=== PATIENT | female | born 1955 | race Caucasian/White ===

== ENCOUNTER → 2018-12-02 08:10 | Outpatient (CLI) | payer OTHER, SELFPAY ==
--- NOTE | 2018-12-02 | DI.US.S_ITS ---
PROCEDURE: US PELVIC COMPLETE INDICATIONS: PELVIC BLOATING/POSTMENOPAUSAL BLEEDING TECHNIQUE: Real-time scanning was performed of the pelvic organs, with image documentation. Additional endovaginal scanning was necessary due to incomplete visualization of the adnexal and endometrial structures by transabdominal scanning. COMPARISON: None. FINDINGS: Transabdominal scanning: Limited scanning through the kidneys shows no hydronephrosis. No pathologic free abdominal or pelvic fluid. Endovaginal scanning: Uterus: The uterus is normal in size and measures 8.6 x 3.6 x 4.6 cm. No focal myometrial lesions are identified. The endometrium is somewhat heterogeneous and measures up to approximately 7 mm in maximal AP combined dimension. No significant fluid is seen within the endometrium. Ovaries: The right ovary measures 1.9 x 0.8 x 0.8 cm. The left ovary measures 1.2 x 0.8 x 1.7 cm. Both ovaries are normal in size without cystic or solid mass. No adnexal abnormalities are evident. IMPRESSION: 1. Endometrial thickening may be the source for the patient's postmenopausal bleeding. Hysteroscopy would be helpful for further evaluation. 2. Unremarkable ovaries. Dictated by: Omar Schroeder M.D. on 12/02/2018 at 8:52 Approved by: Omar Schroeder M.D. on 12/02/2018 at 8:55
--- NOTE | 2018-12-02 08:00 | DI.MG.S_ITS ---
Patient Name: ISAIAH ART date: 1955 Sex: F Attending Physician: Abby Indications: Date: 12/02/2018 08:42 At the request of: KARL ALAS Procedure: MM screening mammo BI BILATERAL DIGITAL SCREENING MAMMOGRAM 3D/2D WITH CAD: 12/02/2018 CLINICAL: Routine screening. Baseline exam. No prior exams were available for comparison. There are scattered fibroglandular elements in both breasts. Current study was also evaluated with a Computer Aided Detection (CAD) system. There is a benign intramammary node in both breasts. There also are benign calcifications in both breasts. No significant masses, calcifications, or other findings are seen in either breast. IMPRESSION: There is no mammographic evidence of malignancy. A 1 year screening mammogram is recommended. This exam was interpreted at Station ID: [id number]. NOTE: For mammograms, a report in lay terms will be sent to the patient. Approximately 15% of breast malignancies will not be visualized mammographically. In the management of a palpable breast mass, a negative mammogram must not discourage biopsy of a clinically suspicious lesion. Electronically Signed By: Ernesto trevino/nathan:12/02/2018 22:41:36 letter sent: Normal Exam ACR BI-RADS Category 2: Benign Finding(s) 3342F
== END ==
PROVIDERS: Visit Provider Nurse Practitioner Obstetrics & Gynecology
DX: Z12.31 Encounter for screening mammogram for malignant neoplasm of breast (principal); N95.0 Postmenopausal bleeding; R93.89 Abnormal findings on diagnostic imaging of other specified body structures; R14.0 Abdominal distension (gaseous)
CPT/HCPCS: 76830; 76856; 77063; 77067

== ENCOUNTER → 2020-07-08 19:48 | Outpatient (ROUT) | payer OTHER, MEDICARE, SELFPAY ==
[2020-07-08 20:04] LABS: Add Manual Diff / Slide Review NO; Basophils Absolute Auto 0 /uL (0-100); Basophils Percent Auto 0.5 % (0-2); Eosinophils Absolute Auto 100 /uL (0-450); Eosinophils Percent Auto 1.3 % (2-4); Hematocrit 38.8 % (36-46); Hemoglobin 12.9 g/dL (12.0-16.0); Lymphocytes Absolute Auto 1500 /uL (1100-4500); Lymphocytes Percent Auto 35.6 % (25-40); Mean Corpuscular HGB Conc 33.3 % (30-36); Mean Corpuscular Hemoglobin 29.1 PG (26-34); Mean Corpuscular Volume 87.6 fL (80-100); Monocytes Absolute Auto 400 /uL (0-900); Monocytes Percent Auto 9.9 % (3-14); Neutrophils Absolute Auto 2200 /uL (1500-7000); Neutrophils Percent Auto 52.7 % (50-75); Platelet Count 324 X10^3/uL (150-400); Red Blood Cell Count 4.43 X10^6/uL (4.0-5.2); Red Cell Distribution Width 14.6 % (11.6-14.8); White Blood Cell Count 4.1 X10^3/uL (4.5-11.0)
[2020-07-08 20:15] LABS: Alanine Aminotransferase 20 IU/L (<35); Albumin 4.4 g/dL (3.5-5.0); Albumin Globulin Ratio 1.5 (1.0-2.8); Alkaline Phosphatase 81 U/L (38-126); Aspartate Aminotransferase 28 IU/L (14-36); BUN Creatinine Ratio 21.5 (6-22); Bilirubin Total 0.6 mg/dL (0.2-1.3); Blood Urea Nitrogen 17 mg/dL (7-17); Calcium 9.6 mg/dL (8.4-10.2); Carbon Dioxide 28 mmol/L (22-32); Chloride 100 mmol/L (98-107); Cholesterol 227 mg/dL (140-199); Estimated Glomerular Filt Rate > 60.0 mL/min (>60); Glucose 81 mg/dL (80-110); HDL Cholesterol 76 mg/dL (40-60); HEMOLYSIS < 15 (0-50); LDL Cholesterol Calculated 132 mg/dL (<100); Potassium 4.2 mmol/L (3.4-5.1); Sodium 135 mmol/L (137-145); Total Protein 7.4 g/dL (6.3-8.2); Triglycerides 93 mg/dL (35-150)
[2020-07-08 20:31] LABS: Free T3, Triiodothyronine Free 4.54 pg/mL (2.77-5.27)
[2020-07-08 20:45] LABS: TSH w/ Reflex to FT4 < 0.02 uIU/mL (0.47-4.68)
== END ==
PROVIDERS: Visit Provider Physician Assistant
DX: E78.2 Mixed hyperlipidemia (principal); E03.8 Other specified hypothyroidism
CPT/HCPCS: 80053; 80061; 84439; 84443; 84481; 85025

== ENCOUNTER → 2020-09-09 19:29 | Outpatient (ROUT) | payer MEDICARE, OTHER, SELFPAY ==
[2020-09-09 20:45] LABS: TSH w/ Reflex to FT4 0.03 uIU/mL (0.47-4.68)
[2020-09-09 21:14] LABS: Free T4, Direct Thyroxine 0.95 ng/dL (0.78-2.19)
== END ==
PROVIDERS: Visit Provider Physician Assistant
DX: E06.3 Autoimmune thyroiditis (principal)
CPT/HCPCS: 84439; 84443

== ENCOUNTER → 2020-11-17 15:35 | Outpatient (ROUT) | payer MEDICARE, SELFPAY ==
[2020-11-17 16:22] LABS: Free T4, Direct Thyroxine 1.39 ng/dL (0.78-2.19)
[2020-11-17 16:36] LABS: Thyroid Stimulating Hormone 3.55 uIU/mL (0.47-4.68)
== END ==
PROVIDERS: PCP Physician Assistant; Visit Provider Physician Assistant
DX: E06.3 Autoimmune thyroiditis (principal); E03.9 Hypothyroidism, unspecified
CPT/HCPCS: 84439; 84443; 84481

== ENCOUNTER → 2020-12-23 14:22 | Outpatient (CLI) | payer MEDICARE, SELFPAY ==
[2020-12-23] MEDS: COVID-19 VACC #1, MRNA(MOD) 100 MCG/0.5 ML VIAL IM (14:33)
== END ==
PROVIDERS: PCP Physician Assistant; Visit Provider Internal Medicine
DX: Z23 Encounter for immunization (principal)
CPT/HCPCS: 0011A; 91301

== ENCOUNTER → 2020-12-29 15:09 | Outpatient (ROUT) | payer MEDICARE, SELFPAY ==
[2020-12-29 16:02] LABS: Free T3, Triiodothyronine Free 2.98 pg/mL (2.77-5.27); Free T4, Direct Thyroxine 1.17 ng/dL (0.78-2.19)
[2021-01-02 15:27] LABS: Thyroid Stimulating Immunoglob < 0.10 IU/L (0.00-0.55)
== END ==
PROVIDERS: PCP Physician Assistant; Visit Provider Physician Assistant
DX: E06.3 Autoimmune thyroiditis (principal); E03.9 Hypothyroidism, unspecified
CPT/HCPCS: 84439; 84445; 84481

== ENCOUNTER → 2021-02-03 08:05 | Outpatient (CLI) | payer MEDICARE, OTHER, SELFPAY ==
[2021-02-03] MEDS: COVID-19 VACC #2, MRNA(MOD) 100 MCG/0.5 ML VIAL IM (08:27)
== END ==
PROVIDERS: PCP Physician Assistant; Visit Provider Internal Medicine
DX: Z23 Encounter for immunization (principal)
CPT/HCPCS: 0012A; 91301

== ENCOUNTER → 2021-11-16 07:38 | Outpatient (CLI) | payer MEDICARE, OTHER, SELFPAY ==
[2021-11-16 08:06] LABS: COVID19 -Nasal RAPID Negative (Negative)
== END ==
PROVIDERS: PCP Physician Assistant; Referring Provider Physician Assistant; Visit Provider Physician Assistant
DX: Z20.822 Contact with and (suspected) exposure to COVID-19 (principal)
CPT/HCPCS: 87635

== ENCOUNTER → 2022-02-06 10:00 | Outpatient (CLI) | payer MEDICARE, OTHER, SELFPAY ==
--- NOTE | 2022-02-06 | DI.MG.S_ITS ---
BILATERAL DIGITAL SCREENING MAMMOGRAM 3D/2D WITH CAD: 02/06/2022 CLINICAL: Routine screening. Comparison is made to exams dated: 12/02/2018 mammogram - [facility], 09/24/2001 mammogram, and 02/06/2001 mammogram - [facility]. There are scattered fibroglandular elements in both breasts. Current study was also evaluated with a Computer Aided Detection (CAD) system. There is a benign intramammary node in both breasts. There also are benign calcifications in both breasts. No significant masses, calcifications, or other findings are seen in either breast. There has been no significant interval change. IMPRESSION: BENIGN There is no mammographic evidence of malignancy. A 1 year screening mammogram is recommended. This exam was interpreted at Station ID: [id number]. NOTE: For mammograms, a report in lay terms will be sent to the patient. Approximately 15% of breast malignancies will not be visualized mammographically. In the management of a palpable breast mass, a negative mammogram must not discourage biopsy of a clinically suspicious lesion. Electronically Signed By: Ernesto trevino/nathan:02/06/2022 12:54:58 letter sent: Normal Exam ACR BI-RADS Category 2: Benign Finding(s) 3342F
== END ==
PROVIDERS: PCP Physician Assistant; Referring Provider Specialist; Visit Provider Specialist
DX: Z12.31 Encounter for screening mammogram for malignant neoplasm of breast (principal)
CPT/HCPCS: 77063; 77067

== ENCOUNTER → 2023-03-13 14:21 | Outpatient (CLI) | payer MEDICARE, OTHER, SELFPAY ==
--- NOTE | 2023-03-13 | DI.MG.S_ITS ---
BILATERAL DIGITAL SCREENING MAMMOGRAM 3D/2D WITH CAD: 03/13/2023 CLINICAL: Routine screening. Comparison is made to exams dated: 02/06/2022 mammogram, 02/06/2022 mammogram, and 12/02/2018 mammogram - [facility]. There are scattered areas of fibroglandular density in both breasts (category b / 25%-50% glandular tissue). Current study was also evaluated with a Computer Aided Detection (CAD) system. There is a benign intramammary node in both breasts. There also are benign calcifications in both breasts. No significant masses, calcifications, or other findings are seen in either breast. There has been no significant interval change. IMPRESSION: BENIGN There is no mammographic evidence of malignancy. A 1 year screening mammogram is recommended. Based on the Tyrer Cuzick model (a risk assessment model) the patient's lifetime risk is 4.8% and her 10 year risk is 2.5%. According to the ACR, ACS, and NCCN guidelines, an annual breast MRI exam along with mammogram is recommended if the patient's lifetime risk is 20% or greater. This exam was interpreted at Station ID: [id number]. NOTE: For mammograms, a report in lay terms will be sent to the patient. Approximately 15% of breast malignancies will not be visualized mammographically. In the management of a palpable breast mass, a negative mammogram must not discourage biopsy of a clinically suspicious lesion. Electronically Signed By: Tay bruno/nathan:03/13/2023 16:45:08 letter sent: Normal Exam ACR BI-RADS Category 2: Benign Finding(s) 3342F
--- NOTE | 2023-03-13 14:30 | DI.DEXA.S_ITS ---
Bone Density Report Name: ISAIAH ART Age: 67 Sex: Female Ethnicity: White Date of : 1955 Indication: postmenopausal; screening for osteoporosis; Referring Provider: KATERINA BIGGS Study: Bone densitometry was performed. Exam Date: March 13, 2023 Accession number: [id number] Bone Density: Region BMD T-score Z-score Classification AP Spine(L1-L4) 1.241 1.8 3.7 Normal Femoral Neck (Left) 0.947 0.9 2.5 Normal Total Hip (Left) 1.066 1.0 2.4 Normal Femoral Neck (Right) 0.935 0.8 2.4 Normal Total Hip (Right) 1.032 0.7 2.1 Normal Total Hip Mean 1.049 0.9 2.3 Normal World Health Organization criteria for BMD impression classify patients as: Normal (T-score at or above -1.0), Osteopenia (T-score between -1.0 and -2.5), or Osteoporosis (T-score at or below -2.5). 10-year Fracture Risk: FRAX not reported because: All T-scores for Spine Total, Hip Total, Femoral Neck at or above -1.0 Impression: The patient has normal bone mass. Discussion: LOW RISK OF FRACTURE; BONE DENSITY IS WELL ABOVE THE MINIMUM DESIRABLE LEVEL AND ABOVE AVERAGE FOR AGE AND SEX AT ALL SKELETAL SITES TESTED. This person's bone density is above expected limits for age and sex. This is rarely clinically significant, but should be pursued if there are significant musculoskeletal complaints. The patient should follow a healthful lifestyle (good nutrition with adequate calcium and vitamin D, and appropriate weight-bearing exercise). Follow-Up: Consider repeating this study in 5 years or sooner if there is some new clinical indication. Reported by: GERDA HEATH MD on 03/13/2023 2:39:00 PM.
== END ==
PROVIDERS: PCP Physician Assistant; Referring Provider Physician Assistant; Visit Provider Physician Assistant
DX: Z12.31 Encounter for screening mammogram for malignant neoplasm of breast (principal); Z13.820 Encounter for screening for osteoporosis; Z78.0 Asymptomatic menopausal state; Z92.23 Personal history of estrogen therapy
CPT/HCPCS: 77063; 77067; 77080

== ENCOUNTER 2023-04-02 08:38 | Day surgery (SDC) | payer MEDICARE, OTHER, SELFPAY ==
[2023-04-02 10:16] VITALS: BP 102/73; PULSE 65; RESP 16; TEMP 36.2; O2SAT 97; BMI 24.9
[2023-04-02] MEDS: LACTATED RINGERS 1,000 ML 200 ML IV (10:33)
--- NOTE | 2023-04-02 11:20 | PM.HP.1 ---
History of Present Illness History of Present Illness Date Patient Seen: 04/02/23 Time Patient Seen: 11:20 Chief complaint: Colonoscopy Narrative: The patient presents for colorectal screening. Colonoscopy 17 years ago normal. No personal or family history of colon cancer. On further history denies any recent gastrointestinal symptoms. No nausea, vomiting, abdominal pain, loss of appetite, unexplained weight loss, change in bowel habits, or blood per rectum. PFS Social History (System 09/12/20 @ 08:33 by Lady Janie Reaves) Smoking Status: Former smoker alcohol intake: current Meds Home Medications and Allergies Home Medications Medication Instructions Recorded Confirmed Type levothyroxine 75 mcg tablet 75 mcg PO DAILY 10/10/20 04/02/23 History progesterone micronized 100 mg 100 mg PO QAM Menopause symptoms 10/10/20 04/02/23 Rx capsule #30 caps estradiol 0.0375 mg/24 hr weekly 1 patch transdermal .COMPLEX 12/12/21 04/02/23 Rx transdermal patch hormone replacement therpy #4 ea estradiol 0.05 mg/24 hr weekly 1 patch transdermal .COMPLEX 12/12/21 12/12/21 Rx transdermal patch Menopause symptoms #4 ea Allergies Allergy/AdvReac Type Severity Reaction Status Date / Time No Known Drug Allergies Allergy Verified 04/02/23 09:55 Exam Vital Signs (past 8 hours): - 04/02/23 10:16 Temperature 97.2 F L Pulse Rate 65 Respiratory Rate 16 Blood Pressure 102/73 Pulse Oximetry 97 Oxygen Delivery Method Room Air Oxygen Delivery Method Room Air Narrative Exam Narrative: General adult woman alert oriented no acute distress Assessment & Plan Assessment & Plan narrative: The patient requires colorectal screening and colonoscopy is recommended. Technical details were discussed. Risks, benefits, alternatives explained. Risks including but not limited to myocardial infarction, aspiration, bleeding, pain, missed lesion, incomplete examination, need for further radiographic studies, colonic perforation, and need for major abdominal surgery were discussed. All questions were answered to their satisfaction, and they are in agreement with this plan.
[2023-04-02 11:50] VITALS: BP 88/61; PULSE 62; RESP 14; TEMP 36.2; O2SAT 97
--- NOTE | 2023-04-02 11:52 | PM.HP.1 ---
History of Present Illness History of Present Illness Date Patient Seen: 04/02/23 Chief complaint: Colonoscopy Narrative: The patient presents for colorectal screening. Colonoscopy 17 years ago normal. No personal or family history of colon cancer. On further history denies any recent gastrointestinal symptoms. No nausea, vomiting, abdominal pain, loss of appetite, unexplained weight loss, change in bowel habits, or blood per rectum. PFS Social History (System 09/12/20 @ 08:33 by Lady Janie Reaves) Smoking Status: Former smoker alcohol intake: current Meds Home Medications and Allergies Home Medications Medication Instructions Recorded Confirmed Type levothyroxine 75 mcg tablet 75 mcg PO DAILY 10/10/20 04/02/23 History progesterone micronized 100 mg 100 mg PO QAM Menopause symptoms 10/10/20 04/02/23 Rx capsule #30 caps estradiol 0.0375 mg/24 hr weekly 1 patch transdermal .COMPLEX 12/12/21 04/02/23 Rx transdermal patch hormone replacement therpy #4 ea estradiol 0.05 mg/24 hr weekly 1 patch transdermal .COMPLEX 12/12/21 12/12/21 Rx transdermal patch Menopause symptoms #4 ea Allergies Allergy/AdvReac Type Severity Reaction Status Date / Time No Known Drug Allergies Allergy Verified 04/02/23 09:55 Exam Vital Signs (past 8 hours): - 04/02/23 10:16 Temperature 97.2 F L Pulse Rate 65 Respiratory Rate 16 Blood Pressure 102/73 Pulse Oximetry 97 Oxygen Delivery Method Room Air Oxygen Delivery Method Room Air Assessment & Plan Assessment & Plan narrative: The patient requires colorectal screening and colonoscopy is recommended. Technical details were discussed. Risks, benefits, alternatives explained. Risks including but not limited to myocardial infarction, aspiration, bleeding, pain, missed lesion, incomplete examination, need for further radiographic studies, colonic perforation, and need for major abdominal surgery were discussed. All questions were answered to their satisfaction, and they are in agreement with this plan.
--- NOTE | 2023-04-02 11:52 | PM.OP.COLON ---
Operative Date/Time/Diagnoses Date of procedure: 04/02/23 Time of procedure: 11:53 Pre-op diagnosis: Colorectal screening Post-op diagnosis: same Procedure & Clinicians Study performed: Colonoscopy Same procedure as scheduled: Yes Indications: Colorectal screening Surgeon: Abiel Huntley Procedure Notes Procedure in detail: The history and physical was performed/updated and the patient is ASA class is 1. The procedure was discussed in detail with the patient. Potential risks complications including infection, bleeding, missed diagnosis, perforation, need for surgery, and were explained. Their questions were answered and informed consent was obtained. Patient was brought to the procedure room and placed standard monitoring equipment. The patient's vital signs were monitored continuously throughout the entire procedure. Prior to starting time-out was performed. The patient was placed in the left lateral recumbent position. Procedural sedation was administered by anesthesia. Examination began with a thorough inspection of the perianal area there was no evidence of fissures, fistulae, external hemorrhoids or cutaneous malignancy. The colonoscopy scope was then placed into the anal canal and was advanced to the cecum, which was identified by the ileocecal valve, the appendiceal orifice and the confluence of the taenia. The scope was then slowly withdrawn examining colon thoroughly in all directions, irrigating it of any residual stool. Colon was without masses, polyps or inflammation. Small amount of external non thrombosed hemorrhoid and grade 1 internal hemorrhoids. The patient tolerated the procedure well. They will be discharged once criteria are met. The prep was of good/excellent quality. The withdrawl time was 6 minutes. Specimen(s): none sent Impression: Normal colonoscopy Post-procedure Recommendations: Colonoscopy in 10 years and High fiber diet Disposition: same day surgery
[2023-04-02 11:55] VITALS: BP 94/64; PULSE 57; RESP 12; O2SAT 97
[2023-04-02 12:01] VITALS: BP 98/63; PULSE 56; RESP 18; TEMP 36.8; O2SAT 95
[2023-04-02 12:07] VITALS: BP 103/64; PULSE 56; RESP 16; TEMP 36.7; O2SAT 97
== END 2023-04-02 12:27 | disposition home or self-care (01) ==
PROVIDERS: PCP Physician Assistant; Referring Provider Surgery; Visit Provider Surgery
PROC: 0DJD8ZZ Inspection of Lower Intestinal Tract, Via Natural or Artificial Opening Endoscopic (ICD-10-PCS; CPT 45378; principal; 2023-04-02 09:45)
DX: Z12.11 Encounter for screening for malignant neoplasm of colon (principal); K64.0 First degree hemorrhoids; K64.4 Residual hemorrhoidal skin tags
CPT/HCPCS: 45378; J2704

== ENCOUNTER → 2024-03-23 07:02 | Outpatient (CLI) | payer MEDICARE, SELFPAY ==
[2024-03-23 08:35] LABS: Free T3, Triiodothyronine Free 2.61 pg/mL (2.77-5.27); Free T4, Direct Thyroxine 1.27 ng/dL (0.78-2.19)
[2024-03-23 08:49] LABS: Thyroid Stimulating Hormone 3.54 uIU/mL (0.47-4.68)
== END ==
PROVIDERS: PCP Physician Assistant; Referring Provider Internal Medicine Endocrinology, Diabetes & Metabolism; Visit Provider Internal Medicine Endocrinology, Diabetes & Metabolism
DX: E03.8 Other specified hypothyroidism (principal); E06.3 Autoimmune thyroiditis
CPT/HCPCS: 36415; 84439; 84443; 84481

== ENCOUNTER → 2024-04-29 07:45 | Outpatient (CLI) | payer MEDICARE, OTHER, SELFPAY ==
--- NOTE | 2024-04-29 07:47 | DI.US.S_ITS ---
PROCEDURE: US ABDOMEN LIMITED INDICATIONS: ABDOMINAL WALL LUMP TECHNIQUE: Real-time focused scanning was performed of the abdomen, with image documentation. COMPARISON: None. FINDINGS: There is no sonographic abnormality to correspond with the area palpated by the patient in the left abdomen. IMPRESSION: No sonographic abnormality which corresponds with the region palpated by the patient. Clinical follow-up recommended. Dictated by: Shanae Menendez M.D. on 04/29/2024 at 9:50 Approved by: Shanae Menendez M.D. on 04/29/2024 at 9:51
== END ==
PROVIDERS: PCP Physician Assistant; Referring Provider Physician Assistant; Visit Provider Physician Assistant
DX: R22.2 Localized swelling, mass and lump, trunk (principal)
CPT/HCPCS: 76705

== ENCOUNTER → 2024-05-01 07:45 | Outpatient (CLI) | payer MEDICARE, SELFPAY ==
--- NOTE | 2024-05-01 07:46 | DI.MG.S_ITS ---
BILATERAL DIGITAL SCREENING MAMMOGRAM 3D/2D WITH CAD: 05/01/2024 CLINICAL: Routine screening. Comparison is made to exams dated: 03/13/2023 mammogram, 02/06/2022 mammogram, and 02/06/2022 mammogram - [facility]. There are scattered areas of fibroglandular density in both breasts (category b / 25%-50% glandular tissue). Current study was also evaluated with a Computer Aided Detection (CAD) system. No significant masses, calcifications, or other findings are seen in either breast. There has been no significant interval change. IMPRESSION: NEGATIVE There is no mammographic evidence of malignancy. A 1 year screening mammogram is recommended. Based on the Tyrer Cuzick model (a risk assessment model) the patient's lifetime risk is 5.2% and her 10 year risk is 2.8%. According to the ACR, ACS, and NCCN guidelines, an annual breast MRI exam along with mammogram is recommended if the patient's lifetime risk is 20% or greater. This exam was interpreted at Station ID: [id number]. NOTE: For mammograms, a report in lay terms will be sent to the patient. Approximately 15% of breast malignancies will not be visualized mammographically. In the management of a palpable breast mass, a negative mammogram must not discourage biopsy of a clinically suspicious lesion. Electronically Signed By: Tammy Boykin M.D., Ph.D. isak/nathan:05/01/2024 09:43:40 letter sent: Normal Exam ACR BI-RADS Category 1: Negative 3341F
--- NOTE | 2024-05-01 07:48 | DI.RAD.S_ITS ---
PROCEDURE: XR DEXA AXIAL SKELETON INDICATIONS: ROUTINE SCREENING COMPARISON: [facility], LIVIA, XR DEXA AXIAL SKELETON, 03/13/2023, 14:30. FINDINGS: Lumbar Spine: Bone mineral density 1.386 g/cm2, T score 3.1, dissimilar scan type does not allow for statistical comparison. Left Hip: Bone mineral density 1.081 g/cm2, T score 1.1, dissimilar scan type does not allow for statistical comparison. Left Femoral Neck: Bone mineral density is 0.965 g/cm2, T score 1.0. Right Hip: Bone mineral density 1.047 g/cm2, T score 0.9, dissimilar scan type does not allow for statistical comparison. Right Femoral Neck: Bone mineral density 0.902 g/cm2, T score 0.5. Fracture Risk Calculation (when applicable): Not reported due to normal bone mineral density. IMPRESSION: Normal bone mineral density. Follow-up guidelines as follows: Osteoporosis: Consider a repeat DEXA and Vertebral Fracture Assessment (VFA) exam in 2 years or sooner if medically necessary, to reassess this patient's status. Osteopenia: Consider a repeat DEXA in 2-3 years to reassess this patient's status, or if there is a new clinical indication. Normal: Consider a repeat DEXA in 5 years or sooner, or if there is a new clinical indication. All treatment decisions require clinical judgment and consideration of individual patient factors, including patient preferences, comorbidities, previous drug use, risk factors not captured in the FRAX model (e.g., frailty, falls, vitamin D deficiency, increased bone turnover, interval significant decline in bone density ) and possible under- or over-estimation of fracture risk by FRAX. In addition, the NOF Guide recommends that FDA-approved medical therapies be considered in postmenopausal women and men age >= 50 years with a: * Hip or vertebral (clinical or morphometric) fracture * T-score of <=-2.5 at the spine or hip * Ten-year fracture probability by FRAX of >= 3% for hip fracture or >=20% for major osteoporotic fracture. People with diagnosed cases of osteoporosis or at high risk for fracture should have regular bone mineral density tests. For patients eligible for Medicare, routine testing is allowed once every 2 years. The testing frequency can be increased to one year for patients who have rapidly progressing disease, those who are receiving or discontinuing medical therapy to restore bone mass, or have additional risk factors. Dictated by: Ede Gómez M.D. on 05/01/2024 at 11:31 Approved by: Ede Gómez M.D. on 05/01/2024 at 11:36
== END ==
LOC: MAMMO 07:46
PROVIDERS: PCP Physician Assistant; Referring Provider Physician Assistant; Visit Provider Physician Assistant
DX: Z12.31 Encounter for screening mammogram for malignant neoplasm of breast (principal); R92.323 Mammographic fibroglandular density, bilateral breasts; Z78.0 Asymptomatic menopausal state
CPT/HCPCS: 77063; 77067; 77080

== ENCOUNTER → 2024-06-15 07:09 | Outpatient (CLI) | payer MEDICARE, SELFPAY ==
[2024-06-15 08:51] LABS: Free T3, Triiodothyronine Free 2.59 pg/mL (2.77-5.27); Free T4, Direct Thyroxine 1.29 ng/dL (0.78-2.19)
[2024-06-15 09:05] LABS: Thyroid Stimulating Hormone 2.15 uIU/mL (0.47-4.68)
== END ==
LOC: LAB 07:11
PROVIDERS: PCP Physician Assistant; Referring Provider Internal Medicine Endocrinology, Diabetes & Metabolism; Visit Provider Internal Medicine Endocrinology, Diabetes & Metabolism
DX: E03.8 Other specified hypothyroidism (principal); E06.3 Autoimmune thyroiditis
CPT/HCPCS: 36415; 84439; 84443; 84481

== ENCOUNTER 2024-07-23 10:30 | Outpatient (RCR) | payer MEDICARE, SELFPAY ==
--- NOTE | 2024-06-22 18:28 | PT.OIE ---
Current Diagnoses Pain in right leg (06/22/24) Visit Care Team Role Provider Type Mary Mena PA-C Family Provider Advanced Neck Skewer Primary Care Provider Specialty: Medical Address: [address] [place] [address], [id number] Email: Aline Aquino PA-C Attending Provider Physician Anthropology Professor Referring Provider Specialty: Medical Address: [place], [address] Email: [email or web address] Physical Therapy Initial Evaluation PT-OP-A Visit Information Start: 06/22/24 09:01 Freq: Status: Active Protocol: Document 06/22/24 09:05 [facility] (Rec: 06/22/24 09:57 [facility] [id number]) Out-Patient Physical Therapy Visit Information Visit Information Visit Type Initial Evaluation Visit Start Time 09:04 Visit Stop Time 09:49 Visit Number 1 Number of TRANSPORTATION SECURITY OFFICER Visits 0 PT-OP-B Current Condition Start: 06/22/24 09:01 Freq: Status: Active Protocol: Document 06/22/24 09:05 [facility] (Rec: 06/22/24 09:57 [facility] [id number]) Current Condition History of Current Condition Onset Date 6 weeks ago Current Complaints R leg pain History of Current Condition Pt hurt leg about 6 weeks ago. She has ADHD and hyperfixation and was cleaning out a 40 ft containiner and just kept doign it until it was done. It started in [place] to med foot now it runs up from heel to buttocks. Has been waiting for it to get better, but it isn't. It is just moving. Hx of plantar fascitis before and other fell on L knee and has done PT in the past. She has some OA but has annoying L knee pain. GOes to gym 2x/week and walks 1-1. 5 hr a week. She reports she is clumsy since she was a kid. Her leg hurts when going to the gym. She does a lot of AROM of ankle. Ankle gets stiff. Hx of R>L lat hip pain for the past year. it did get better with lifting though. 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 She goes down stairs holding the rail. Leg cramps at night ( calf, toes, hands, quads) have been worse. Drinking a lot of fluids and tries magnesium and has tried a lot of different options. She eats a heavy carnivore diet and does monitor her micro and macronutrients. She follows the PE diet. She also follows oxilate diet. hx of use of feldenkris method. Has been doing acupuncture and that seems to help. Treatment Goals Patient/Caregiver Goals pain to go away PT-OP-C Subjective Start: 06/22/24 09:01 Freq: Status: Active Protocol: Document 06/22/24 09:05 [facility] (Rec: 06/22/24 09:57 [facility] [id number]) Patient Questionnaires Lower Extremity Functional Scale LEFS Score 63/80 OP-PT Pain Assessment Location R leg pain Pain Location Details buttocks, HS Description Aching,With Movement Description- Other leg cramps Frequency Constant Variations/Patterns achilles pain Pain Aggravating Factors Exercise,Standing,Walking Pain Alleviating Factors Cold Other Pain Alleviating Factors tylenol (only takes when really need it) PT-OP-D Balance Start: 06/22/24 09:01 Freq: Status: Active Protocol: Document 06/22/24 09:05 [facility] (Rec: 06/22/24 09:57 [facility] [id number]) Balance Tests Single Limb Standing Single Limb- Right 10 sec Single Limb- Left >30 sec PT-OP-G Mobility & Gait Start: 06/22/24 09:01 Freq: Status: Active Protocol: Document 06/22/24 09:05 [facility] (Rec: 06/22/24 09:57 [facility] [id number]) OP Gait Assessment Comments Gait Comments dec push off, excessive pelvic rot PT-OP-J Posture/Palpation/Skin Start: 06/22/24 09:01 Freq: Status: Active Protocol: Document 06/22/24 09:05 [facility] (Rec: 06/22/24 09:57 [facility] [id number]) Posture Evaluation [place] Postural Classification System [place] Postural Classifications Posterior/Posterior Vertical Compression Test 1 Lumbar Protective Mechanism Left AP 0 Lumbar Protective Mechanism Right AP 0 Lumbar Protective Mechanism Left PA 0 Lumbar Protective Mechanism Right PA 1 Comments Posture Comments mild L rot trunk, R iliac crest higher, equal greater trochanters, inc lordosis , less Knee ext L knee, L toes slightly turned out PT-OP-L Special Tests Start: 06/22/24 09:01 Freq: Status: Active Protocol: Document 06/22/24 09:05 [facility] (Rec: 06/22/24 09:57 [facility] [id number]) Special Tests Hip Special Tests Sandro Comments B hip flexor stretch & RF tightness SLR Comments neg slump Comments more tightness w/slump and ext sit R PT-OP-M Strength Start: 06/22/24 09:01 Freq: Status: Active Protocol: Document 06/22/24 09:05 [facility] (Rec: 06/22/24 09:57 [facility] [id number]) Hip Strength Hip Manual Muscle Testing Right Flexion (L2) 4 Good Extension (S1) 3+ Fair+ Abduction 4- Good- Adduction 4+ Good+ External Rotation 4 Good Internal Rotation 5 Normal Left Flexion (L2) 5 Normal Extension (S1) 3+ Fair+ Abduction 5 Normal Adduction 5 Normal External Rotation 5 Normal Internal Rotation 5 Normal Knee Strength Knee Manual Muscle Testing Left Flexion (S2) 4+ Good+ Extension (L3) 4+ Good+ Right Flexion (S2) 5 Normal Extension (L3) 5 Normal Ankle/Foot Strength Ankle and Foot Manual Muscle Testing Right Dorsiflexion (L4) 5 Normal Plantarflexion (S1) 5 Normal Inversion 5 Normal Eversion (S1) 5 Normal Left Dorsiflexion (L4) 5 Normal Plantarflexion (S1) 5 Normal Inversion 4 Good Eversion (S1) 4 Good Comments 20 heel raises pain achilles PT-OP-Q Treatments Start: 06/22/24 09:01 Freq: Status: Active Protocol: Document 06/22/24 09:05 [facility] (Rec: 06/22/24 18:09 [facility] [id number]) Self-Care/Home Management Treatment Education Other Education 8 min: edu re: SIJ relating to pain and n tension. Discussed w/pt re: how restrictions in abdomen can cause hip restrictions and may be contributing to pain. edu on getting pictures of workstation. Edu to cont anti inflamatory diet that is working for her. PT-OP-T Assessment and Plan Start: 06/22/24 09:01 Freq: Status: Active Protocol: Document 06/22/24 09:05 [facility] (Rec: 06/22/24 09:57 [facility] [id number]) Physical Therapy Assessment Rehab Potential Rehabilitation Potential Good Evaluation Complexity Number of Personal Factors/Comorbidities 1-2 Number of Body Systems Impaired 4 or More Clinical Presentation at Evaluation Evolving Impairments Impairments Activity Tolerance,Balance, Functional Activities, Functional Mobility,Gait,Pain, Posture,ROM,Soft Tissue Mobility,Strength Goals activities Short Term Goal (STG) Pt will be able to ascend/ descend stairs reciprocally w/ o rails w/o inc pain in RLE STG Duration 08/03 Disability Coordinator Goal (LTG) Pt will reports dec RLE cramps and no pain greater than 1/10 during exercise and work LTG Duration 08/31 strength Short Term Goal (STG) Pt will be indep w/HEP STG Duration 07/26 Disability Coordinator Goal (LTG) Pt will score at least 5/5 on all MMT of BLEs and at least 3 /5 LPM in all planes to show improved stability so pt has less pain during daily activities LTG Duration 08/31 balance Impairment 10 sec R; >30 sec L SLS Short Term Goal (STG) Pt will be able to stand on RLE for at least 15 sec to show improved balance STG Duration 07/24 Disability Coordinator Goal (LTG) Pt will be able to stand on RLE for at least 30 sec to show improved balance LTG Duration 08/31 Assessment Summary Assessment Pt presents w/R leg pain that started in ankle/foot and now is at achilles and also R buttocks and HS region w/ positive neural tension testing. Pt does show dec core stability, and R iliac crest higher and pelvic shear indicating likely pelvic dysfunction w/radicular pain. She may have further dysfunction at achilles that is also causing pain in this region. She would benefit from skilled PT to worko n improving strength, balance, ROM and stability in order to dec pain Physical Therapy Plan Frequency and Duration Frequency of Treatment 2x/Week Duration of treatment (weeks) 10 Plan of Care Start Date 06/22/24 Plan of Care End Date 08/31/24 Therapeutic Interventions Therapeutic Interventions Balance Training,Gait Training ,Home Exercise Program,Joint Mobilizations,Manual Therapy, Neuromuscular Re-education, Patient/Caregiver Education, Self-Care/Home Management,Soft Tissue Mobilization,Taping, Therapeutic Activities, Therapeutic Exercises Modalities Cold Pack/Ice Massage,Electric Stimulation,Hot Packs, Traction- Mechanical Next Visit Focus/Plan Next Note Type Treatment Note Next Visit Plan sleep position, look at desk position, pirfiormis stretch, sciatic n glide, hip flexor stretch, clamshell, sidestep manual to R thigh MM, hip jt and mm and innominate
--- NOTE | 2024-06-22 18:28 | PT.OPPOC ---
Physical, Occupational & Speech Therapy At [facility] Current Diagnoses Pain in right leg (06/22/24) Visit Care Team Role Provider Type Mary Mena PA-C Family Provider Advanced Power Lineworker Primary Care Provider Specialty: Medical Address: [address] [place] [address], [address] Email: Aline Aquino PA-C Attending Provider Physician Maintenance Porter Referring Provider Specialty: Medical Address: [place], [address] Email: [email or web address] Plan Of Care PT-OP-B Current Condition Start: 06/22/24 09:01 Freq: Status: Active Protocol: Document 06/22/24 09:05 [facility] (Rec: 06/22/24 09:57 [facility] [id number]) Current Condition History of Current Condition Onset Date 6 weeks ago Current Complaints R leg pain History of Current Condition Pt hurt leg about 6 weeks ago. She has ADHD and hyperfixation and was cleaning out a 40 ft containiner and just kept doign it until it was done. It started in [place] to med foot now it runs up from heel to buttocks. Has been waiting for it to get better, but it isn't. It is just moving. Hx of plantar fascitis before and other fell on L knee and has done PT in the past. She has some OA but has annoying L knee pain. GOes to gym 2x/week and walks 1-1. 5 hr a week. She reports she is clumsy since she was a kid. Her leg hurts when going to the gym. She does a lot of AROM of ankle. Ankle gets stiff. Hx of R>L lat hip pain for the past year. it did get better with lifting though. 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 She goes down stairs holding the rail. Leg cramps at night ( calf, toes, hands, quads) have been worse. Drinking a lot of fluids and tries magnesium and has tried a lot of different options. She eats a heavy carnivore diet and does monitor her micro and macronutrients. She follows the PE diet. She also follows oxilate diet. hx of use of feldenkris method. Has been doing acupuncture and that seems to help. Treatment Goals Patient/Caregiver Goals pain to go away PT-OP-T Assessment and Plan Start: 06/22/24 09:01 Freq: Status: Active Protocol: Document 06/22/24 09:05 [facility] (Rec: 06/22/24 09:57 [facility] [id number]) Physical Therapy Assessment Rehab Potential Rehabilitation Potential Good Evaluation Complexity Number of Personal Factors/Comorbidities 1-2 Number of Body Systems Impaired 4 or More Clinical Presentation at Evaluation Evolving Impairments Impairments Activity Tolerance,Balance, Functional Activities, Functional Mobility,Gait,Pain, Posture,ROM,Soft Tissue Mobility,Strength Goals activities Short Term Goal (STG) Pt will be able to ascend/ descend stairs reciprocally w/ o rails w/o inc pain in RLE STG Duration 08/03 Fdc Goal (LTG) Pt will reports dec RLE cramps and no pain greater than 1/10 during exercise and work LTG Duration 08/31 strength Short Term Goal (STG) Pt will be indep w/HEP STG Duration 07/26 Hat And Cap Sewer Goal (LTG) Pt will score at least 5/5 on all MMT of BLEs and at least 3 /5 LPM in all planes to show improved stability so pt has less pain during daily activities LTG Duration 08/31 balance Impairment 10 sec R; >30 sec L SLS Short Term Goal (STG) Pt will be able to stand on RLE for at least 15 sec to show improved balance STG Duration 07/24 Hat And Cap Sewer Goal (LTG) Pt will be able to stand on RLE for at least 30 sec to show improved balance LTG Duration 08/31 Assessment Summary Assessment Pt presents w/R leg pain that started in ankle/foot and now is at achilles and also R buttocks and HS region w/ positive neural tension testing. Pt does show dec core stability, and R iliac crest higher and pelvic shear indicating likely pelvic dysfunction w/radicular pain. She may have further dysfunction at achilles that is also causing pain in this region. She would benefit from skilled PT to worko n improving strength, balance, ROM and stability in order to dec pain Physical Therapy Plan Frequency and Duration Frequency of Treatment 2x/Week Duration of treatment (weeks) 10 Plan of Care Start Date 06/22/24 Plan of Care End Date 08/31/24 Therapeutic Interventions Therapeutic Interventions Balance Training,Gait Training ,Home Exercise Program,Joint Mobilizations,Manual Therapy, Neuromuscular Re-education, Patient/Caregiver Education, Self-Care/Home Management,Soft Tissue Mobilization,Taping, Therapeutic Activities, Therapeutic Exercises Modalities Cold Pack/Ice Massage,Electric Stimulation,Hot Packs, Traction- Mechanical Next Visit Focus/Plan Next Note Type Treatment Note Next Visit Plan sleep position, look at desk position, pirfiormis stretch, sciatic n glide, hip flexor stretch, clamshell, sidestep manual to R thigh MM, hip jt and mm and innominate Plan of Care Dates Plan of Care Start Date 06/22/24 Plan of Care End Date 08/31/24 Electronically Signed by: Valentina Magdaleno, PT 06/23/24 2712 If you are in agreement with this Plan of Care, please return a signed and dated copy. I have reviewed this Plan of Care and certify that the skilled therapy services above are required to meet the patient?s needs. Physician Signature Date Printed Name and Credentials Clinical Instructor Signature Printed Name and Credentials
--- NOTE | 2024-07-01 10:36 | PT.OTN ---
Current Diagnoses Pain in right leg (07/01/24) Physical Therapy Treatment Note PT-OP-A Visit Information Start: 06/22/24 09:01 Freq: Status: Active Protocol: Document 07/01/24 09:01 [facility] (Rec: 07/01/24 10:36 [facility] [id number]) Out-Patient Physical Therapy Visit Information Visit Information Visit Type Treatment Note Visit Note 01/04 Visit Start Time 09:03 Visit Stop Time 09:45 Visit Number 2 Number of IT HELP DESK ASSOCIATE Visits 0 PT-OP-B Current Condition Start: 06/22/24 09:01 Freq: Status: Active Protocol: Document 06/22/24 09:05 [facility] (Rec: 06/22/24 09:57 [facility] [id number]) Current Condition History of Current Condition Onset Date 6 weeks ago Current Complaints R leg pain History of Current Condition Pt hurt leg about 6 weeks ago. She has ADHD and hyperfixation and was cleaning out a 40 ft containiner and just kept doign it until it was done. It started in [place] to med foot now it runs up from heel to buttocks. Has been waiting for it to get better, but it isn't. It is just moving. Hx of plantar fascitis before and other fell on L knee and has done PT in the past. She has some OA but has annoying L knee pain. GOes to gym 2x/week and walks 1-1. 5 hr a week. She reports she is clumsy since she was a kid. Her leg hurts when going to the gym. She does a lot of AROM of ankle. Ankle gets stiff. Hx of R>L lat hip pain for the past year. it did get better with lifting though. 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 She goes down stairs holding the rail. Leg cramps at night ( calf, toes, hands, quads) have been worse. Drinking a lot of fluids and tries magnesium and has tried a lot of different options. She eats a heavy carnivore diet and does monitor her micro and macronutrients. She follows the PE diet. She also follows oxilate diet. hx of use of feldenkris method. Has been doing acupuncture and that seems to help. Treatment Goals Patient/Caregiver Goals pain to go away PT-OP-C Subjective Start: 06/22/24 09:01 Freq: Status: Active Protocol: Document 07/01/24 09:01 [facility] (Rec: 07/01/24 10:36 [facility] [id number]) OP-PT Subjective Patient Comments Patient Comments Pt reports her ankle/foot was sore after playing w/[employer] PT-OP-D Balance Start: 06/22/24 09:01 Freq: Status: Active Protocol: Document 06/22/24 09:05 [facility] (Rec: 06/22/24 09:57 [facility] [id number]) Balance Tests Single Limb Standing Single Limb- Right 10 sec Single Limb- Left >30 sec PT-OP-G Mobility & Gait Start: 06/22/24 09:01 Freq: Status: Active Protocol: Document 06/22/24 09:05 [facility] (Rec: 06/22/24 09:57 [facility] [id number]) OP Gait Assessment Comments Gait Comments dec push off, excessive pelvic rot PT-OP-J Posture/Palpation/Skin Start: 06/22/24 09:01 Freq: Status: Active Protocol: Document 06/22/24 09:05 [facility] (Rec: 06/22/24 09:57 [facility] [id number]) Posture Evaluation [facility] Postural Classification System [facility] Postural Classifications Posterior/Posterior Vertical Compression Test 1 Lumbar Protective Mechanism Left AP 0 Lumbar Protective Mechanism Right AP 0 Lumbar Protective Mechanism Left PA 0 Lumbar Protective Mechanism Right PA 1 Comments Posture Comments mild L rot trunk, R iliac crest higher, equal greater trochanters, inc lordosis , less Knee ext L knee, L toes slightly turned out PT-OP-L Special Tests Start: 06/22/24 09:01 Freq: Status: Active Protocol: Document 06/22/24 09:05 [facility] (Rec: 06/22/24 09:57 [facility] [id number]) Special Tests Hip Special Tests Sandro Comments B hip flexor stretch & RF tightness SLR Comments neg slump Comments more tightness w/slump and ext sit R PT-OP-M Strength Start: 06/22/24 09:01 Freq: Status: Active Protocol: Document 06/22/24 09:05 [facility] (Rec: 06/22/24 09:57 [facility] [id number]) Hip Strength Hip Manual Muscle Testing Right Flexion (L2) 4 Good Extension (S1) 3+ Fair+ Abduction 4- Good- Adduction 4+ Good+ External Rotation 4 Good Internal Rotation 5 Normal Left Flexion (L2) 5 Normal Extension (S1) 3+ Fair+ Abduction 5 Normal Adduction 5 Normal External Rotation 5 Normal Internal Rotation 5 Normal Knee Strength Knee Manual Muscle Testing Left Flexion (S2) 4+ Good+ Extension (L3) 4+ Good+ Right Flexion (S2) 5 Normal Extension (L3) 5 Normal Ankle/Foot Strength Ankle and Foot Manual Muscle Testing Right Dorsiflexion (L4) 5 Normal Plantarflexion (S1) 5 Normal Inversion 5 Normal Eversion (S1) 5 Normal Left Dorsiflexion (L4) 5 Normal Plantarflexion (S1) 5 Normal Inversion 4 Good Eversion (S1) 4 Good Comments 20 heel raises pain achilles PT-OP-Q Treatments Start: 06/22/24 09:01 Freq: Status: Active Protocol: Document 07/01/24 09:01 [facility] (Rec: 07/01/24 10:36 [facility] [id number]) Therapeutic Exercises Supine Exercises stretch Supine Exercise Name piriformis stretch Side right Reps/Minutes 1 min Sidelying Exercises clamshell Side bilateral Equipment Used L2 Reps/Minutes 15 Comments cues no pelvis rotation Standing Exercises stretch Standing Exercise Name R calf/hip flexor Side right Reps/Minutes 60 sec Comments attempted also on step for calf but painful Manual Therapy Treatment Consent Patient gave verbal consent for manual Yes treatment Soft Tissue Mobilization calf Body Location R achilles and calf Mobilization Type Myofascial Release,Rolling Body Position Supine Joint Mobilizations innominate Joint R caudal and ER FM Body Position Prone sacrum Joint R PA FM w/R ER Body Position Prone ankle Joint R Comments 1. calcaneal distraction & lat tilt 2. talar distracitona nd med glide FM 3. gentle stretch into pronation hip Joint on axis ER FM Body Position Prone PT-OP-T Assessment and Plan Start: 06/22/24 09:01 Freq: Status: Active Protocol: Document 07/01/24 09:01 [facility] (Rec: 07/01/24 10:36 [facility] [id number]) Physical Therapy Assessment Goals activities Short Term Goal (STG) Pt will be able to ascend/ descend stairs reciprocally w/ o rails w/o inc pain in RLE STG Duration 08/03 [employer] Goal (LTG) Pt will reports dec RLE cramps and no pain greater than 1/10 during exercise and work LTG Duration 08/31 strength Short Term Goal (STG) Pt will be indep w/HEP STG Duration 07/26 Half-Way Goal (LTG) Pt will score at least 5/5 on all MMT of BLEs and at least 3 /5 LPM in all planes to show improved stability so pt has less pain during daily activities LTG Duration 08/31 balance Impairment 10 sec R; >30 sec L SLS Short Term Goal (STG) Pt will be able to stand on RLE for at least 15 sec to show improved balance STG Duration 07/24 Half-Way Goal (LTG) Pt will be able to stand on RLE for at least 30 sec to show improved balance LTG Duration 08/31 Assessment Summary Assessment Pt had improved ankle DF w/ manual but still had restriction in ant talocrual jt that will require further mobiliztion. She did well with exercises w/min cues. Improved hip ER w/manual Physical Therapy Plan Frequency and Duration Frequency of Treatment 2x/Week Duration of treatment (weeks) 10 Plan of Care Start Date 06/22/24 Plan of Care End Date 08/31/24 Next Visit Focus/Plan Next Note Type Treatment Note Next Visit Plan sleep position, look at desk position, h, sciatic n glide, add sidestep manual to R thigh MM, hip jt and mm and innominate & foot/ ankle
--- NOTE | 2024-07-06 15:58 | PT.OTN ---
Current Diagnoses Pain in right leg (07/06/24) Physical Therapy Treatment Note PT-OP-A Visit Information Start: 06/22/24 09:01 Freq: Status: Active Protocol: Document 07/06/24 08:20 [facility] (Rec: 07/06/24 15:58 [facility] [id number]) Out-Patient Physical Therapy Visit Information Visit Information Visit Type Treatment Note Visit Note 02/01 Visit Start Time 08:20 Visit Stop Time 09:00 Visit Number 3 Number of RETAIL STORE ASSISTANT Visits 0 PT-OP-B Current Condition Start: 06/22/24 09:01 Freq: Status: Active Protocol: Document 06/22/24 09:05 [facility] (Rec: 06/22/24 09:57 [facility] [id number]) Current Condition History of Current Condition Onset Date 6 weeks ago Current Complaints R leg pain History of Current Condition Pt hurt leg about 6 weeks ago. She has ADHD and hyperfixation and was cleaning out a 40 ft containiner and just kept doign it until it was done. It started in [place] to med foot now it runs up from heel to buttocks. Has been waiting for it to get better, but it isn't. It is just moving. Hx of plantar fascitis before and other fell on L knee and has done PT in the past. She has some OA but has annoying L knee pain. GOes to gym 2x/week and walks 1-1. 5 hr a week. She reports she is clumsy since she was a kid. Her leg hurts when going to the gym. She does a lot of AROM of ankle. Ankle gets stiff. Hx of R>L lat hip pain for the past year. it did get better with lifting though. 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 She goes down stairs holding the rail. Leg cramps at night ( calf, toes, hands, quads) have been worse. Drinking a lot of fluids and tries magnesium and has tried a lot of different options. She eats a heavy carnivore diet and does monitor her micro and macronutrients. She follows the PE diet. She also follows oxilate diet. hx of use of feldenkris method. Has been doing acupuncture and that seems to help. Treatment Goals Patient/Caregiver Goals pain to go away PT-OP-C Subjective Start: 06/22/24 09:01 Freq: Status: Active Protocol: Document 07/06/24 08:20 [facility] (Rec: 07/06/24 15:58 [facility] [id number]) OP-PT Subjective Patient Comments Patient Comments Pt reports her B HS was sore yesterday. Standing at desk is the worst PT-OP-D Balance Start: 06/22/24 09:01 Freq: Status: Active Protocol: Document 06/22/24 09:05 [facility] (Rec: 06/22/24 09:57 [facility] [id number]) Balance Tests Single Limb Standing Single Limb- Right 10 sec Single Limb- Left >30 sec PT-OP-G Mobility & Gait Start: 06/22/24 09:01 Freq: Status: Active Protocol: Document 06/22/24 09:05 [facility] (Rec: 06/22/24 09:57 [facility] [id number]) OP Gait Assessment Comments Gait Comments dec push off, excessive pelvic rot PT-OP-J Posture/Palpation/Skin Start: 06/22/24 09:01 Freq: Status: Active Protocol: Document 06/22/24 09:05 [facility] (Rec: 06/22/24 09:57 [facility] [id number]) Posture Evaluation [facility] Postural Classification System [place] Postural Classifications Posterior/Posterior Vertical Compression Test 1 Lumbar Protective Mechanism Left AP 0 Lumbar Protective Mechanism Right AP 0 Lumbar Protective Mechanism Left PA 0 Lumbar Protective Mechanism Right PA 1 Comments Posture Comments mild L rot trunk, R iliac crest higher, equal greater trochanters, inc lordosis , less Knee ext L knee, L toes slightly turned out PT-OP-L Special Tests Start: 06/22/24 09:01 Freq: Status: Active Protocol: Document 06/22/24 09:05 [facility] (Rec: 06/22/24 09:57 [facility] [id number]) Special Tests Hip Special Tests Sandro Comments B hip flexor stretch & RF tightness SLR Comments neg slump Comments more tightness w/slump and ext sit R PT-OP-M Strength Start: 06/22/24 09:01 Freq: Status: Active Protocol: Document 06/22/24 09:05 [facility] (Rec: 06/22/24 09:57 [facility] [id number]) Hip Strength Hip Manual Muscle Testing Right Flexion (L2) 4 Good Extension (S1) 3+ Fair+ Abduction 4- Good- Adduction 4+ Good+ External Rotation 4 Good Internal Rotation 5 Normal Left Flexion (L2) 5 Normal Extension (S1) 3+ Fair+ Abduction 5 Normal Adduction 5 Normal External Rotation 5 Normal Internal Rotation 5 Normal Knee Strength Knee Manual Muscle Testing Left Flexion (S2) 4+ Good+ Extension (L3) 4+ Good+ Right Flexion (S2) 5 Normal Extension (L3) 5 Normal Ankle/Foot Strength Ankle and Foot Manual Muscle Testing Right Dorsiflexion (L4) 5 Normal Plantarflexion (S1) 5 Normal Inversion 5 Normal Eversion (S1) 5 Normal Left Dorsiflexion (L4) 5 Normal Plantarflexion (S1) 5 Normal Inversion 4 Good Eversion (S1) 4 Good Comments 20 heel raises pain achilles PT-OP-Q Treatments Start: 06/22/24 09:01 Freq: Status: Active Protocol: Document 07/06/24 08:20 [facility] (Rec: 07/06/24 15:58 [facility] [id number]) Therapeutic Exercises Supine Exercises stretch Supine Exercise Name figure 4 knee to chest Side right Reps/Minutes 1 min Standing Exercises sidestep Side bilateral Equipment Used L2 Reps/Minutes 20ft ea Other Exercises sidesit Other Exercise Name switch sit Side bilateral Reps/Minutes 3 ea Comments mat table UE help Manual Therapy Treatment Consent Patient gave verbal consent for manual Yes treatment Soft Tissue Mobilization calf Body Location R achilles and calf Mobilization Type Myofascial Release,Rolling Body Position Supine Joint Mobilizations ankle Comments talar distraction and lat glide & AP FM cuneiform 1 and 2 med glide FM hip Comments hooklying fee the ball IR/ER R FM; inf glide R FM PT-OP-T Assessment and Plan Start: 06/22/24 09:01 Freq: Status: Active Protocol: Document 07/06/24 08:20 [facility] (Rec: 07/06/24 15:58 [facility] [id number]) Physical Therapy Assessment Goals activities Short Term Goal (STG) Pt will be able to ascend/ descend stairs reciprocally w/ o rails w/o inc pain in RLE STG Duration 08/03 After School Program Director Goal (LTG) Pt will reports dec RLE cramps and no pain greater than 1/10 during exercise and work LTG Duration 08/31 strength Short Term Goal (STG) Pt will be indep w/HEP STG Duration 07/26 Assisted Goal (LTG) Pt will score at least 5/5 on all MMT of BLEs and at least 3 /5 LPM in all planes to show improved stability so pt has less pain during daily activities LTG Duration 08/31 balance Impairment 10 sec R; >30 sec L SLS Short Term Goal (STG) Pt will be able to stand on RLE for at least 15 sec to show improved balance STG Duration 07/24 After School Program Director Goal (LTG) Pt will be able to stand on RLE for at least 30 sec to show improved balance LTG Duration 08/31 Assessment Summary Assessment Pt did well with new exercises but does get cramping w/ attempt at side sit switch and does not have good enough moblity or strength to do it w /o UE support. Improved hip ROM after manual Physical Therapy Plan Frequency and Duration Frequency of Treatment 2x/Week Duration of treatment (weeks) 10 Plan of Care Start Date 06/22/24 Plan of Care End Date 08/31/24 Next Visit Focus/Plan Next Note Type Treatment Note Next Visit Plan sleep position, look at desk position, cont to work hip strength manual to R thigh MM, hip jt and mm and innominate & foot/ ankle
--- NOTE | 2024-07-08 11:14 | PT.OTN ---
Current Diagnoses Pain in right leg (07/08/24) Physical Therapy Treatment Note PT-OP-A Visit Information Start: 06/22/24 09:01 Freq: Status: Active Protocol: Document 07/08/24 10:28 [facility] (Rec: 07/08/24 11:19 [facility] [id number]) Out-Patient Physical Therapy Visit Information Visit Information Visit Type Treatment Note Visit Note 03/04 Visit Start Time 10:30 Visit Stop Time 11:14 Visit Number 4 Number of ADMINISTRATION INTERNSHIP Visits 1 PT-OP-B Current Condition Start: 06/22/24 09:01 Freq: Status: Active Protocol: Document 06/22/24 09:05 [facility] (Rec: 06/22/24 09:57 [facility] [id number]) Current Condition History of Current Condition Onset Date 6 weeks ago Current Complaints R leg pain History of Current Condition Pt hurt leg about 6 weeks ago. She has ADHD and hyperfixation and was cleaning out a 40 ft containiner and just kept doign it until it was done. It started in [place] to med foot now it runs up from heel to buttocks. Has been waiting for it to get better, but it isn't. It is just moving. Hx of plantar fascitis before and other fell on L knee and has done PT in the past. She has some OA but has annoying L knee pain. GOes to gym 2x/week and walks 1-1. 5 hr a week. She reports she is clumsy since she was a kid. Her leg hurts when going to the gym. She does a lot of AROM of ankle. Ankle gets stiff. Hx of R>L lat hip pain for the past year. it did get better with lifting though. 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 She goes down stairs holding the rail. Leg cramps at night ( calf, toes, hands, quads) have been worse. Drinking a lot of fluids and tries magnesium and has tried a lot of different options. She eats a heavy carnivore diet and does monitor her micro and macronutrients. She follows the PE diet. She also follows oxilate diet. hx of use of feldenkris method. Has been doing acupuncture and that seems to help. Treatment Goals Patient/Caregiver Goals pain to go away PT-OP-C Subjective Start: 06/22/24 09:01 Freq: Status: Active Protocol: Document 07/08/24 10:28 [facility] (Rec: 07/08/24 11:19 SP [id number]) OP-PT Subjective Patient Comments Patient Comments Pt reports her R ankle and feet and R hip tiring and soreness. Was lifting heavy boxes up stairs empting 40 ft container so wanted to finish. When standing alot more at standing desk and achilles and legs ache. Has used [employer]oka shoes, rubber mats and mindful sit for rest/recovery and not seeing significant changes. Also getting out of bed pain achilles, takes Magnesium and 60 oz water daily. Compliant with HEP instructed. PT-OP-D Balance Start: 06/22/24 09:01 Freq: Status: Active Protocol: Document 06/22/24 09:05 [facility] (Rec: 06/22/24 09:57 [facility] [id number]) Balance Tests Single Limb Standing Single Limb- Right 10 sec Single Limb- Left >30 sec PT-OP-G Mobility & Gait Start: 06/22/24 09:01 Freq: Status: Active Protocol: Document 06/22/24 09:05 [facility] (Rec: 06/22/24 09:57 [facility] [id number]) OP Gait Assessment Comments Gait Comments dec push off, excessive pelvic rot PT-OP-J Posture/Palpation/Skin Start: 06/22/24 09:01 Freq: Status: Active Protocol: Document 06/22/24 09:05 [facility] (Rec: 06/22/24 09:57 [facility] [id number]) Posture Evaluation [facility] Postural Classification System [facility] Postural Classifications Posterior/Posterior Vertical Compression Test 1 Lumbar Protective Mechanism Left AP 0 Lumbar Protective Mechanism Right AP 0 Lumbar Protective Mechanism Left PA 0 Lumbar Protective Mechanism Right PA 1 Comments Posture Comments mild L rot trunk, R iliac crest higher, equal greater trochanters, inc lordosis , less Knee ext L knee, L toes slightly turned out PT-OP-L Special Tests Start: 06/22/24 09:01 Freq: Status: Active Protocol: Document 06/22/24 09:05 [facility] (Rec: 06/22/24 09:57 [facility] [id number]) Special Tests Hip Special Tests Sandro Comments B hip flexor stretch & RF tightness SLR Comments neg slump Comments more tightness w/slump and ext sit R PT-OP-M Strength Start: 06/22/24 09:01 Freq: Status: Active Protocol: Document 06/22/24 09:05 [facility] (Rec: 06/22/24 09:57 [facility] [id number]) Hip Strength Hip Manual Muscle Testing Right Flexion (L2) 4 Good Extension (S1) 3+ Fair+ Abduction 4- Good- Adduction 4+ Good+ External Rotation 4 Good Internal Rotation 5 Normal Left Flexion (L2) 5 Normal Extension (S1) 3+ Fair+ Abduction 5 Normal Adduction 5 Normal External Rotation 5 Normal Internal Rotation 5 Normal Knee Strength Knee Manual Muscle Testing Left Flexion (S2) 4+ Good+ Extension (L3) 4+ Good+ Right Flexion (S2) 5 Normal Extension (L3) 5 Normal Ankle/Foot Strength Ankle and Foot Manual Muscle Testing Right Dorsiflexion (L4) 5 Normal Plantarflexion (S1) 5 Normal Inversion 5 Normal Eversion (S1) 5 Normal Left Dorsiflexion (L4) 5 Normal Plantarflexion (S1) 5 Normal Inversion 4 Good Eversion (S1) 4 Good Comments 20 heel raises pain achilles PT-OP-Q Treatments Start: 06/22/24 09:01 Freq: Status: Active Protocol: Document 07/08/24 10:28 [facility] (Rec: 07/08/24 11:19 SP [id number]) Gym Equipment Shuttle Recovery Unilateral Details cued knee alignment more lateral Resistance 50# (1 teal, 1 navy) Reps/Time x15 reps, heel drive- good quad/glut tiring Therapeutic Exercises Sitting Exercises STs /c TB Sitting Exercise Name added to HEP- declined HO Resistance TB #2 thighs Equipment Used mesh chair, mirror Reps/Minutes x10 Comments cued knees out mid and behind toes Standing Exercises sidestep Side bilateral Equipment Used L2 Reps/Minutes 20ft ea Manual Therapy Treatment Consent Patient gave verbal consent for manual Yes treatment Soft Tissue Mobilization calf Body Location R achilles and calf Mobilization Type Myofascial Release,Rolling, Sustained Pressure,Other Body Position Supine Comments manual STMs soleus and achilles, MWM /c FM AP sustained pressure soleus and achilles- pressure feedback requested Joint Mobilizations ankle Comments Talocrual posterior glide into DF PROM, PA med&lateral malleolus, decreased lateral glide calcaneus- distraction med/lateral glide improved ROM hip Comments R ASIS post rotated, decreased range hip flexion- innominate R hooklying inf glide R FM hip ext isometric hold 3x5 sec- corrected MET, corrected pelvic alignment. Self-Care/Home Management Treatment Education Patient Education Joint Protection,Pain Management Other Education ed on self STMs achilles and calf, Discussed arch lift and self use golf ball rolling am for decreased plantar tension and self achilles pressure & APs for increased flexibility before get out of bed flexibililty hoping assist less R achilles pain when coming to standing. PT-OP-T Assessment and Plan Start: 06/22/24 09:01 Freq: Status: Active Protocol: Document 07/08/24 10:28 [facility] (Rec: 07/08/24 11:19 SP [id number]) Physical Therapy Assessment Goals activities Short Term Goal (STG) Pt will be able to ascend/ descend stairs reciprocally w/ o rails w/o inc pain in RLE STG Duration 08/03 Video Technician Goal (LTG) Pt will reports dec RLE cramps and no pain greater than 1/10 during exercise and work LTG Duration 08/31 strength Short Term Goal (STG) Pt will be indep w/HEP STG Duration 07/26 Penitentiary Goal (LTG) Pt will score at least 5/5 on all MMT of BLEs and at least 3 /5 LPM in all planes to show improved stability so pt has less pain during daily activities LTG Duration 08/31 balance Impairment 10 sec R; >30 sec L SLS Short Term Goal (STG) Pt will be able to stand on RLE for at least 15 sec to show improved balance STG Duration 07/24 Penitentiary Goal (LTG) Pt will be able to stand on RLE for at least 30 sec to show improved balance LTG Duration 08/31 Assessment Summary Assessment Pt good response to manual with feedback on gentle tolerant pressure and instructed gentle pressure MWM /MET during pelvic correction on R, returned to level alignment. Improved hip abd recruitment tiring during resisted TB STS and side stepping. Cues for hip hinge buttocks back, small achilles tension awareness last 2/10 reps, went away when stopped. 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 ICE and elevate, stretching knows. No adverse affects to ther ex today. Physical Therapy Plan Frequency and Duration Frequency of Treatment 2x/Week Duration of treatment (weeks) 10 Plan of Care Start Date 06/22/24 Plan of Care End Date 08/31/24 Therapeutic Interventions Therapeutic Interventions Balance Training,Gait Training ,Home Exercise Program,Joint Mobilizations,Manual Therapy, Neuromuscular Re-education, Patient/Caregiver Education, Self-Care/Home Management,Soft Tissue Mobilization,Taping, Therapeutic Activities, Therapeutic Exercises Modalities Cold Pack/Ice Massage,Electric Stimulation,Hot Packs, Traction- Mechanical Next Visit Focus/Plan Next Note Type Treatment Note Next Visit Plan Recheck resisted HEP, response to manual. NExt tx: check sleep position, look at desk position, cont to work hip strength, manual to R thigh MM, hip jt and mm and innominate & foot/ ankle
--- NOTE | 2024-07-21 18:39 | PT.OTN ---
Current Diagnoses Pain in right leg (07/21/24) Physical Therapy Treatment Note PT-OP-A Visit Information Start: 06/22/24 09:01 Freq: Status: Active Protocol: Document 07/21/24 09:05 [facility] (Rec: 07/21/24 09:10 [facility] [id number]) Out-Patient Physical Therapy Visit Information Visit Information Visit Type Progress Note Visit Start Time 09:05 Visit Stop Time 09:45 Visit Number 5 Number of ORTHOPEDIC CAST SPECIALIST Visits 0 PT-OP-B Current Condition Start: 06/22/24 09:01 Freq: Status: Active Protocol: Document 06/22/24 09:05 [facility] (Rec: 06/22/24 09:57 [facility] [id number]) Current Condition History of Current Condition Onset Date 6 weeks ago Current Complaints R leg pain History of Current Condition Pt hurt leg about 6 weeks ago. She has ADHD and hyperfixation and was cleaning out a 40 ft containiner and just kept doign it until it was done. It started in [place] to med foot now it runs up from heel to buttocks. Has been waiting for it to get better, but it isn't. It is just moving. Hx of plantar fascitis before and other fell on L knee and has done PT in the past. She has some OA but has annoying L knee pain. GOes to gym 2x/week and walks 1-1. 5 hr a week. She reports she is clumsy since she was a kid. Her leg hurts when going to the gym. She does a lot of AROM of ankle. Ankle gets stiff. Hx of R>L lat hip pain for the past year. it did get better with lifting though. 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 She goes down stairs holding the rail. Leg cramps at night ( calf, toes, hands, quads) have been worse. Drinking a lot of fluids and tries magnesium and has tried a lot of different options. She eats a heavy carnivore diet and does monitor her micro and macronutrients. She follows the PE diet. She also follows oxilate diet. hx of use of feldenkris method. Has been doing acupuncture and that seems to help. Treatment Goals Patient/Caregiver Goals pain to go away PT-OP-C Subjective Start: 06/22/24 09:01 Freq: Status: Active Protocol: Document 07/21/24 09:05 [facility] (Rec: 07/21/24 09:10 [facility] [id number]) OP-PT Subjective Patient Comments Patient Comments Only one day entire leg ached when standing at desk. Can feel ankle occ PT-OP-D Balance Start: 06/22/24 09:01 Freq: Status: Active Protocol: Document 06/22/24 09:05 [facility] (Rec: 06/22/24 09:57 [facility] [id number]) Balance Tests Single Limb Standing Single Limb- Right 10 sec Single Limb- Left >30 sec PT-OP-G Mobility & Gait Start: 06/22/24 09:01 Freq: Status: Active Protocol: Document 06/22/24 09:05 [facility] (Rec: 06/22/24 09:57 [facility] [id number]) OP Gait Assessment Comments Gait Comments dec push off, excessive pelvic rot PT-OP-J Posture/Palpation/Skin Start: 06/22/24 09:01 Freq: Status: Active Protocol: Document 07/21/24 09:05 [facility] (Rec: 07/21/24 09:16 [facility] [id number]) Posture Evaluation [facility] Postural Classification System [place] Postural Classifications Posterior/Posterior Vertical Compression Test 2 Lumbar Protective Mechanism Left AP 1 Lumbar Protective Mechanism Right AP 3 Lumbar Protective Mechanism Left PA 4 Lumbar Protective Mechanism Right PA 2 PT-OP-L Special Tests Start: 06/22/24 09:01 Freq: Status: Active Protocol: Document 06/22/24 09:05 [facility] (Rec: 06/22/24 09:57 [facility] [id number]) Special Tests Hip Special Tests Sandro Comments B hip flexor stretch & RF tightness SLR Comments neg slump Comments more tightness w/slump and ext sit R PT-OP-M Strength Start: 06/22/24 09:01 Freq: Status: Active Protocol: Document 07/21/24 09:05 [facility] (Rec: 07/21/24 09:16 [facility] [id number]) Hip Strength Hip Manual Muscle Testing Right Flexion (L2) 5 Normal Extension (S1) 3+ Fair+ Abduction 4- Good- Adduction 4+ Good+ External Rotation 4+ Good+ Internal Rotation 5 Normal Left Flexion (L2) 4+ Good+ Extension (S1) 4- Good- Abduction 5 Normal Adduction 5 Normal External Rotation 5 Normal Internal Rotation 5 Normal Knee Strength Knee Manual Muscle Testing Left Flexion (S2) 5 Normal Extension (L3) 5 Normal Right Flexion (S2) 5 Normal Extension (L3) 5 Normal Ankle/Foot Strength Ankle and Foot Manual Muscle Testing Right Dorsiflexion (L4) 5 Normal Plantarflexion (S1) 5 Normal Inversion 5 Normal Eversion (S1) 5 Normal Left Dorsiflexion (L4) 5 Normal Plantarflexion (S1) 5 Normal Inversion 4 Good Eversion (S1) 4+ Good+ Comments 20 heel raises PT-OP-Q Treatments Start: 06/22/24 09:01 Freq: Status: Active Protocol: Document 07/21/24 09:05 [facility] (Rec: 07/21/24 09:16 [facility] [id number]) Therapeutic Exercises Prone Exercises hip extension Side bilateral Reps/Minutes 12 Comments alt cues slow and controlled Sitting Exercises ankle tband Sitting Exercise Name 1. inversion 2. eversion Side right Resistance L3 Reps/Minutes 15 Manual Therapy Treatment Soft Tissue Mobilization calf Body Location R achilles and calf Mobilization Type Myofascial Release,Rolling, Sustained Pressure,Other Body Position Supine Joint Mobilizations ankle Body Position Supine Comments AP tibia FM med to lat talus and AP FM med cuneiform 1-2 FM Neuro Re-Education Treatment Balance Activities bosu Comments 1. step up RLE x10 2. squat blue side and black side x8 ea 3.fwd lunge RLE x5 SLS Details B trials PT-OP-T Assessment and Plan Start: 06/22/24 09:01 Freq: Status: Active Protocol: Document 07/21/24 09:05 [facility] (Rec: 07/21/24 09:10 [facility] [id number]) Physical Therapy Assessment Goals activities Short Term Goal (STG) Pt will be able to ascend/ descend stairs reciprocally w/ o rails w/o inc pain in RLE STG Duration achieved Installation Superintendent Goal (LTG) Pt will reports dec RLE cramps and no pain greater than 1/10 during exercise and work 07/21-03/04 when stadning or at end of day LTG Duration 08/31 strength Short Term Goal (STG) Pt will be indep w/HEP STG Duration achieved advancing as able Installation Superintendent Goal (LTG) Pt will score at least 5/5 on all MMT of BLEs and at least 3 /5 LPM in all planes to show improved stability so pt has less pain during daily activities 07/21-improved LTG Duration 08/31 balance Impairment 10 sec R; >30 sec L SLS Short Term Goal (STG) Pt will be able to stand on RLE for at least 15 sec to show improved balance STG Duration achieved to 17 sec 07/21 Correction Goal (LTG) Pt will be able to stand on RLE for at least 30 sec to show improved balance LTG Duration 08/31 Assessment Summary Assessment Pt did well with progression of exercises today and was able to tolerate more advanced balance on bosu and does have one at home. She is making excellent progress w/dec instances of pain at this time . She would benefit from cont PT to work on dec LE pain further in order to allow greater ease in typical activities. Physical Therapy Plan Frequency and Duration Frequency of Treatment 2x/Week Duration of treatment (weeks) 10 Plan of Care Start Date 06/22/24 Plan of Care End Date 08/31/24 Therapeutic Interventions Therapeutic Interventions Balance Training,Gait Training ,Home Exercise Program,Joint Mobilizations,Manual Therapy, Neuromuscular Re-education, Patient/Caregiver Education, Self-Care/Home Management,Soft Tissue Mobilization,Taping, Therapeutic Activities, Therapeutic Exercises Modalities Cold Pack/Ice Massage,Electric Stimulation,Hot Packs, Traction- Mechanical Next Visit Focus/Plan Next Note Type Treatment Note Next Visit Plan review new exercises; cont to work on R ankle, hip and pelvis mobility
--- NOTE | 2024-07-23 11:22 | PT.OTN ---
Current Diagnoses Pain in right leg (07/23/24) Physical Therapy Treatment Note PT-OP-A Visit Information Start: 06/22/24 09:01 Freq: Status: Active Protocol: Document 07/23/24 10:38 [facility] (Rec: 07/23/24 11:55 [facility] [id number]) Out-Patient Physical Therapy Visit Information Visit Information Visit Type Treatment Note Visit Start Time 10:38 Visit Stop Time 11:22 Visit Number 6 Number of INSTRUCTOR PROGRAMMABLE CONTROLLERS Visits 1 PT-OP-B Current Condition Start: 06/22/24 09:01 Freq: Status: Active Protocol: Document 06/22/24 09:05 [facility] (Rec: 06/22/24 09:57 [facility] [id number]) Current Condition History of Current Condition Onset Date 6 weeks ago Current Complaints R leg pain History of Current Condition Pt hurt leg about 6 weeks ago. She has ADHD and hyperfixation and was cleaning out a 40 ft containiner and just kept doign it until it was done. It started in [place] to med foot now it runs up from heel to buttocks. Has been waiting for it to get better, but it isn't. It is just moving. Hx of plantar fascitis before and other fell on L knee and has done PT in the past. She has some OA but has annoying L knee pain. GOes to gym 2x/week and walks 1-1. 5 hr a week. She reports she is clumsy since she was a kid. Her leg hurts when going to the gym. She does a lot of AROM of ankle. Ankle gets stiff. Hx of R>L lat hip pain for the past year. it did get better with lifting though. 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 She goes down stairs holding the rail. Leg cramps at night ( calf, toes, hands, quads) have been worse. Drinking a lot of fluids and tries magnesium and has tried a lot of different options. She eats a heavy carnivore diet and does monitor her micro and macronutrients. She follows the PE diet. She also follows oxilate diet. hx of use of feldenkris method. Has been doing acupuncture and that seems to help. Treatment Goals Patient/Caregiver Goals pain to go away PT-OP-C Subjective Start: 06/22/24 09:01 Freq: Status: Active Protocol: Document 07/23/24 10:38 [facility] (Rec: 07/23/24 11:55 SP [id number]) OP-PT Subjective Patient Comments Patient Comments pt PT-OP-D Balance Start: 06/22/24 09:01 Freq: Status: Active Protocol: Document 06/22/24 09:05 [facility] (Rec: 06/22/24 09:57 [facility] [id number]) Balance Tests Single Limb Standing Single Limb- Right 10 sec Single Limb- Left >30 sec PT-OP-G Mobility & Gait Start: 06/22/24 09:01 Freq: Status: Active Protocol: Document 06/22/24 09:05 [facility] (Rec: 06/22/24 09:57 [facility] [id number]) OP Gait Assessment Comments Gait Comments dec push off, excessive pelvic rot PT-OP-J Posture/Palpation/Skin Start: 06/22/24 09:01 Freq: Status: Active Protocol: Document 07/21/24 09:05 [facility] (Rec: 07/21/24 09:16 [facility] [id number]) Posture Evaluation [facility] Postural Classification System [facility] Postural Classifications Posterior/Posterior Vertical Compression Test 2 Lumbar Protective Mechanism Left AP 1 Lumbar Protective Mechanism Right AP 3 Lumbar Protective Mechanism Left PA 4 Lumbar Protective Mechanism Right PA 2 PT-OP-L Special Tests Start: 06/22/24 09:01 Freq: Status: Active Protocol: Document 06/22/24 09:05 [facility] (Rec: 06/22/24 09:57 [facility] [id number]) Special Tests Hip Special Tests Sandro Comments B hip flexor stretch & RF tightness SLR Comments neg slump Comments more tightness w/slump and ext sit R PT-OP-M Strength Start: 06/22/24 09:01 Freq: Status: Active Protocol: Document 07/21/24 09:05 [facility] (Rec: 07/21/24 09:16 [facility] [id number]) Hip Strength Hip Manual Muscle Testing Right Flexion (L2) 5 Normal Extension (S1) 3+ Fair+ Abduction 4- Good- Adduction 4+ Good+ External Rotation 4+ Good+ Internal Rotation 5 Normal Left Flexion (L2) 4+ Good+ Extension (S1) 4- Good- Abduction 5 Normal Adduction 5 Normal External Rotation 5 Normal Internal Rotation 5 Normal Knee Strength Knee Manual Muscle Testing Left Flexion (S2) 5 Normal Extension (L3) 5 Normal Right Flexion (S2) 5 Normal Extension (L3) 5 Normal Ankle/Foot Strength Ankle and Foot Manual Muscle Testing Right Dorsiflexion (L4) 5 Normal Plantarflexion (S1) 5 Normal Inversion 5 Normal Eversion (S1) 5 Normal Left Dorsiflexion (L4) 5 Normal Plantarflexion (S1) 5 Normal Inversion 4 Good Eversion (S1) 4+ Good+ Comments 20 heel raises PT-OP-Q Treatments Start: 06/22/24 09:01 Freq: Status: Active Protocol: Document 07/23/24 10:38 [facility] (Rec: 07/23/24 11:55 SP [id number]) Therapeutic Exercises Supine Exercises bridge Supine Exercise Name DL bridge/c wt- review self gym ex Resistance 2-10# leg wt on pelvis- Uses bar at gym 20# Reps/Minutes 5 SH x10, 2 sets stretch Supine Exercise Name figure 4 knee to chest- piriformis stretch Side right Reps/Minutes 1 min Prone Exercises hip extension Prone Exercise Name HEP reviewed Side bilateral Reps/Minutes 12 Comments cued TKE, no lift pelvis or press down opp LE into table, TA draw in needed Sitting Exercises ankle tband Sitting Exercise Name 1. inversion 2. eversion- HEP reviewed Side right Resistance L3 Reps/Minutes 2x15- tends to do til gets tired Comments cued set up IV leg extended and LLE overRLE, EV keep heel down, knee align Other Exercises self STMs Other Exercise Name Ed self R calf, achilles mobility Side right Equipment Used rolling pin vs foam roller- calf Comments MWM grasp achilles /c FM ankle pump Manual Therapy Treatment Soft Tissue Mobilization calf Body Location R achilles and calf Mobilization Type Instrument Assisted,Rolling, Sustained Pressure,Other Body Position long sit Comments manual STMs then INSTRUCTOR PROGRAMMABLE CONTROLLERS instruction self carryover rolling pin vs foam roller calf, MWM sustained pressure achilles /c ankle pumps Joint Mobilizations ankle Joint R Body Position long sit Comments -manual AP tibia -PA talus /c FM DF -PA distal tib, fib /c ankle DF PROM -Instruction self tarsal mobility (R ankle over L thigh ): calcaneus med/lat, MTP gross rotation and A<>P Neuro Re-Education Treatment Balance Activities bosu Comments 1. step up RLE x10 2. squat blue side and black side x8 ea 3.fwd lunge RLE x5 Self-Care/Home Management Treatment Education Patient Education Body Mechanics,Home Exercise Program,Joint Protection,Pain Management Other Education Some time spent self application manual STMs and ankle mobility, proper set up of prone hip ext with out LS arch or knee flexion compensations. Also set up and proper form ankle IV & EV, improved demonstration. PT-OP-T Assessment and Plan Start: 06/22/24 09:01 Freq: Status: Active Protocol: Document 07/23/24 10:38 [facility] (Rec: 07/23/24 11:55 SP [id number]) Physical Therapy Assessment Goals activities Short Term Goal (STG) Pt will be able to ascend/ descend stairs reciprocally w/ o rails w/o inc pain in RLE STG Duration achieved Principal Cyber Engineer Goal (LTG) Pt will reports dec RLE cramps and no pain greater than 1/10 during exercise and work 07/21-03/04 when stadning or at end of day LTG Duration 08/31 strength Short Term Goal (STG) Pt will be indep w/HEP STG Duration achieved advancing as able Principal Cyber Engineer Goal (LTG) Pt will score at least 5/5 on all MMT of BLEs and at least 3 /5 LPM in all planes to show improved stability so pt has less pain during daily activities 07/21-improved LTG Duration 08/31 balance Impairment 10 sec R; >30 sec L SLS Short Term Goal (STG) Pt will be able to stand on RLE for at least 15 sec to show improved balance STG Duration achieved to 17 sec 07/21 Principal Cyber Engineer Goal (LTG) Pt will be able to stand on RLE for at least 30 sec to show improved balance LTG Duration 08/31 Assessment Summary Assessment Pt good response improve R ankle mobility after manual STMs and education on self application if anterior ankle tightness reduction. Improved form with better eccentric control with cues for set up and proper direction motion during hip ext prone, ankle eversion and inversion. Cues for allowance ankle DF and stability med /lateral neutral corrections during BOSU activity reports good challenge and less to no R ankle anterior pain, improves with rep performance. Physical Therapy Plan Frequency and Duration Frequency of Treatment 2x/Week Duration of treatment (weeks) 10 Plan of Care Start Date 06/22/24 Plan of Care End Date 08/31/24 Therapeutic Interventions Therapeutic Interventions Balance Training,Gait Training ,Home Exercise Program,Joint Mobilizations,Manual Therapy, Neuromuscular Re-education, Patient/Caregiver Education, Self-Care/Home Management,Soft Tissue Mobilization,Taping, Therapeutic Activities, Therapeutic Exercises Modalities Cold Pack/Ice Massage,Electric Stimulation,Hot Packs, Traction- Mechanical Next Visit Focus/Plan Next Note Type Treatment Note Next Visit Plan review new exercises set up/ form (prone ext, ankle iv/ev set up) POC: Progress hip strength, cont to work on R ankle, hip and pelvis mobility
--- NOTE | 2024-08-11 15:37 | PT.OPDS ---
Current Diagnoses Pain in right leg (07/23/24) Visit Care Team Role Provider Type Mary Mena PA-C Family Provider Advanced Threshing Machine Operator Primary Care Provider Specialty: Medical Address: [address] [place] [address], [id number] Email: Aline Aquino PA-C Attending Provider Physician Superintendent Container Terminal Referring Provider Specialty: Medical Address: [place], [address] Email: [email or web address] Visit Number Visit Number 6 Discharge Summary PT-OP-B Current Condition Start: 06/22/24 09:01 Freq: Status: Active Protocol: Document 06/22/24 09:05 [facility] (Rec: 06/22/24 09:57 [facility] [id number]) Current Condition History of Current Condition Onset Date 6 weeks ago Current Complaints R leg pain History of Current Condition Pt hurt leg about 6 weeks ago. She has ADHD and hyperfixation and was cleaning out a 40 ft containiner and just kept doign it until it was done. It started in [place] to med foot now it runs up from heel to buttocks. Has been waiting for it to get better, but it isn't. It is just moving. Hx of plantar fascitis before and other fell on L knee and has done PT in the past. She has some OA but has annoying L knee pain. GOes to gym 2x/week and walks 1-1. 5 hr a week. She reports she is clumsy since she was a kid. Her leg hurts when going to the gym. She does a lot of AROM of ankle. Ankle gets stiff. Hx of R>L lat hip pain for the past year. it did get better with lifting though. 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 She goes down stairs holding the rail. Leg cramps at night ( calf, toes, hands, quads) have been worse. Drinking a lot of fluids and tries magnesium and has tried a lot of different options. She eats a heavy carnivore diet and does monitor her micro and macronutrients. She follows the PE diet. She also follows oxilate diet. hx of use of feldenkris method. Has been doing acupuncture and that seems to help. Treatment Goals Patient/Caregiver Goals pain to go away PT-OP-C Subjective Start: 06/22/24 09:01 Freq: Status: Active Protocol: Document 07/23/24 10:38 [facility] (Rec: 07/23/24 11:55 SP [id number]) OP-PT Subjective Patient Comments Patient Comments pt PT-OP-D Balance Start: 06/22/24 09:01 Freq: Status: Active Protocol: Document 06/22/24 09:05 [facility] (Rec: 06/22/24 09:57 [facility] [id number]) Balance Tests Single Limb Standing Single Limb- Right 10 sec Single Limb- Left >30 sec PT-OP-G Mobility & Gait Start: 06/22/24 09:01 Freq: Status: Active Protocol: Document 06/22/24 09:05 [facility] (Rec: 06/22/24 09:57 [facility] [id number]) OP Gait Assessment Comments Gait Comments dec push off, excessive pelvic rot PT-OP-J Posture/Palpation/Skin Start: 06/22/24 09:01 Freq: Status: Active Protocol: Document 07/21/24 09:05 [facility] (Rec: 07/21/24 09:16 [facility] [id number]) Posture Evaluation [facility] Postural Classification System [facility] Postural Classifications Posterior/Posterior Vertical Compression Test 2 Lumbar Protective Mechanism Left AP 1 Lumbar Protective Mechanism Right AP 3 Lumbar Protective Mechanism Left PA 4 Lumbar Protective Mechanism Right PA 2 PT-OP-L Special Tests Start: 06/22/24 09:01 Freq: Status: Active Protocol: Document 06/22/24 09:05 [facility] (Rec: 06/22/24 09:57 [facility] [id number]) Special Tests Hip Special Tests Sandro Comments B hip flexor stretch & RF tightness SLR Comments neg slump Comments more tightness w/slump and ext sit R PT-OP-M Strength Start: 06/22/24 09:01 Freq: Status: Active Protocol: Document 07/21/24 09:05 [facility] (Rec: 07/21/24 09:16 [facility] [id number]) Hip Strength Hip Manual Muscle Testing Right Flexion (L2) 5 Normal Extension (S1) 3+ Fair+ Abduction 4- Good- Adduction 4+ Good+ External Rotation 4+ Good+ Internal Rotation 5 Normal Left Flexion (L2) 4+ Good+ Extension (S1) 4- Good- Abduction 5 Normal Adduction 5 Normal External Rotation 5 Normal Internal Rotation 5 Normal Knee Strength Knee Manual Muscle Testing Left Flexion (S2) 5 Normal Extension (L3) 5 Normal Right Flexion (S2) 5 Normal Extension (L3) 5 Normal Ankle/Foot Strength Ankle and Foot Manual Muscle Testing Right Dorsiflexion (L4) 5 Normal Plantarflexion (S1) 5 Normal Inversion 5 Normal Eversion (S1) 5 Normal Left Dorsiflexion (L4) 5 Normal Plantarflexion (S1) 5 Normal Inversion 4 Good Eversion (S1) 4+ Good+ Comments 20 heel raises PT-OP-T Assessment and Plan Start: 06/22/24 09:01 Freq: Status: Active Protocol: Document 08/11/24 15:36 [facility] (Rec: 08/11/24 15:37 [facility] [id number]) Physical Therapy Assessment Goals activities Short Term Goal (STG) Pt will be able to ascend/ descend stairs reciprocally w/ o rails w/o inc pain in RLE STG Duration achieved Care Home Goal (LTG) Pt will reports dec RLE cramps and no pain greater than 1/10 during exercise and work 07/21-03/04 when stadning or at end of day LTG Duration 08/31 strength Short Term Goal (STG) Pt will be indep w/HEP STG Duration achieved advancing as able Care Home Goal (LTG) Pt will score at least 5/5 on all MMT of BLEs and at least 3 /5 LPM in all planes to show improved stability so pt has less pain during daily activities 07/21-improved LTG Duration 08/31 balance Impairment 10 sec R; >30 sec L SLS Short Term Goal (STG) Pt will be able to stand on RLE for at least 15 sec to show improved balance STG Duration achieved to 17 sec 07/21 Adult Ministries Director Goal (LTG) Pt will be able to stand on RLE for at least 30 sec to show improved balance LTG Duration 08/31 Assessment Summary Assessment pt called to cancel remaining appointments. Said she is doing exercise at home and feeling better, no longer needed. DC d/t pt request . pt made progress w/PT overall and is noting no significant issues so dc to HEP Physical Therapy Plan Discharge Physical Therapy Discharge Reasons Patient Request
== END 2024-08-18 12:41 | disposition home or self-care (01) ==
LOC: PHYS 10:30
PROVIDERS: Family Provider Physician Assistant; PCP Physician Assistant; Referring Provider Student in an Organized Health Care Education/Training Program; Visit Provider Student in an Organized Health Care Education/Training Program
DX: M79.604 Pain in right leg (principal)
CPT/HCPCS: 97110; 97112; 97140; 97162; 97535

== ENCOUNTER → 2024-08-05 07:17 | Outpatient (CLI) | payer MEDICARE, SELFPAY ==
[2024-08-05 10:08] LABS: Free T3, Triiodothyronine Free 2.31 pg/mL (2.77-5.27); Free T4, Direct Thyroxine 1.02 ng/dL (0.78-2.19)
[2024-08-05 10:22] LABS: Thyroid Stimulating Hormone 4.32 uIU/mL (0.47-4.68)
== END ==
LOC: LAB 07:19
PROVIDERS: Family Provider Physician Assistant; PCP Physician Assistant; Referring Provider Internal Medicine Endocrinology, Diabetes & Metabolism; Visit Provider Internal Medicine Endocrinology, Diabetes & Metabolism
DX: E03.8 Other specified hypothyroidism (principal); E06.3 Autoimmune thyroiditis
CPT/HCPCS: 36415; 84439; 84443; 84481

== ENCOUNTER 2024-09-07 08:41 | Day surgery (SDC) | payer MEDICARE, SELFPAY ==
[2024-09-02 10:53] VITALS: BMI 23.8
[2024-09-07] VITALS (8 sets, daily range): BP systolic 103–120; BP diastolic 53–66; PULSE 47–64; RESP 12–17; TEMP 36.1–36.3; O2SAT 96–100; BMI 23.8
--- NOTE | 2024-09-07 | PATH_ITS ---
[facility] Accession Number: [id number] No. of containers..01 Tissue . 01 Material submitted: . uterus - UTERINE CURRETAGE . 01 Diagnosis: UTERINE CURETTAGE: Portions of weakly proliferative endometrial tissue with patchy regions of stromal breakdown; negative for endometrioid intraepithelial neoplasia or malignancy. [facility] 09/10/2024 1130 Local . 01 Electronically signed: . Bambi Velasco MD, Pathologist NPI- [id number] . 01 Gross description: . UTERINE CURRETAGE: Received in formalin are minute fragments of mucoid and hemorrhagic material measuring 2.0 x 2.0 x 0.2 cm in aggregate. Submitted in toto in 1 cassette. /YUNIEL 09/09/2024 0001 Local . 01 Pathologist provided ICD-10: N84.0, N95.0 . 01 CPT . 105689 Performed at: [address] [address], [place], [place] [id number] MD Cuate Piña MD Phone: [phone]
--- NOTE | 2024-09-07 09:16 | PM.PREOP ---
Pre-operative Note Interval Note History & Physical reviewed/Exam performed by Physician: Yes Changes to H&P: No
[2024-09-07] MEDS: ACETAMINOPHEN 325 MG TABLET 975 MG PO (09:28)
[2024-09-07] MEDS: LACTATED RINGERS 1,000 ML 21 ML IV (09:30)
--- NOTE | 2024-09-07 10:21 | SUR.OPER ---
Lithotomy on padded OR bed, head on pillow, arms secured on padded arm boards at <90 degrees abduction. Legs secured in padded yellow fins stirrups.
--- NOTE | 2024-09-07 10:38 | P.OP_ITS ---
Operative Date/Time/Diagnoses Date of procedure: 09/07/24 Time of procedure: 10:38 Pre-op diagnosis: Postmenopausal bleeding, endocervical polyp Post-op diagnosis: same Procedure & Clinicians Procedure: Hysteroscopy D&C Same procedure as scheduled: Yes Indications: Postmenopausal bleeding with fluid in the endometrial canal and probable endo cervical polyp by ultrasound Surgeon: Carlie Eugene Click Yes if Unassisted: Yes Anesthesia Type: General Operative Notes Findings: Small polyp of the uterus at the internal os of the cervix. Thin endometrium. Normal exam under anesthesia. Closure Type: not applicable Specimen(s): other (Endometrial curettage) Estimated Blood Loss (mL): 5 Blood products transfused: none Procedure in detail: The patient was brought to the operating room where she underwent general anesthesia. She was placed in low stirrups She was prepped and draped in usual sterile fashion with pulsatile stockings in place and functional, warming in place. A single-tooth tenaculum was placed on the anterior lip of the cervix and the uterus dilated to #6 Hegar dilator. The MyoSure hysteroscope was placed into the uterus with a saline solution running and under constant suction. A endometrial curettage was performed and the hysteroscope replaced to confirm that the polyp that was seen was removed. The endometrial curettage was sent to pathology. The patient went to recovery room in good condition counts of instruments and sponges were correct. Estimated blood loss less than 5 mL. The total fluid volume 826 cc total deficit 115 cc. Final pressure 80. No cautery was used. Complications: none Post-operative Condition: stable Disposition: same day surgery Plan for aftercare: Home when awake and stable
[2024-09-07] MEDS: OXYCODONE IR 5 MG TABLET PO (10:58)
== END 2024-09-07 11:29 | disposition home or self-care (01) ==
PROVIDERS: Family Provider Physician Assistant; PCP Physician Assistant; Referring Provider Specialist; Visit Provider Specialist
PROC: 0UDB8ZZ Extraction of Endometrium, Via Natural or Artificial Opening Endoscopic (ICD-10-PCS; CPT 58558; principal; 2024-09-07 09:45)
DX: N95.0 Postmenopausal bleeding (principal); N84.0 Polyp of corpus uteri
CPT/HCPCS: 58558; J1100; J2250; J2405

== ENCOUNTER → 2024-10-05 06:08 | Outpatient (CLI) | payer MEDICARE, SELFPAY ==
[2024-10-05 08:33] LABS: Free T3, Triiodothyronine Free 2.58 pg/mL (2.77-5.27); Free T4, Direct Thyroxine 0.84 ng/dL (0.78-2.19)
[2024-10-05 08:47] LABS: Thyroid Stimulating Hormone 5.91 uIU/mL (0.47-4.68)
== END ==
PROVIDERS: Family Provider Physician Assistant; PCP Physician Assistant; Referring Provider Internal Medicine Endocrinology, Diabetes & Metabolism; Visit Provider Internal Medicine Endocrinology, Diabetes & Metabolism
DX: E03.8 Other specified hypothyroidism (principal); E06.3 Autoimmune thyroiditis
CPT/HCPCS: 36415; 84439; 84443; 84481

== ENCOUNTER → 2024-12-07 06:01 | Outpatient (CLI) | payer MEDICARE, SELFPAY ==
[2024-12-07 08:28] LABS: Free T4, Direct Thyroxine 2.28 ng/dL (0.78-2.19)
[2024-12-07 08:42] LABS: Thyroid Stimulating Hormone < 0.015 uIU/mL (0.47-4.68)
== END ==
PROVIDERS: Family Provider Physician Assistant; PCP Physician Assistant; Referring Provider Internal Medicine Endocrinology, Diabetes & Metabolism; Visit Provider Internal Medicine Endocrinology, Diabetes & Metabolism
DX: E06.3 Autoimmune thyroiditis (principal)
CPT/HCPCS: 36415; 84439; 84443

== ENCOUNTER → 2025-02-10 06:00 | Outpatient (CLI) | payer MEDICARE, SELFPAY ==
[2025-02-10 08:26] LABS: Free T3, Triiodothyronine Free 3.52 pg/mL (2.77-5.27)
== END ==
PROVIDERS: Family Provider Physician Assistant; PCP Physician Assistant; Referring Provider Internal Medicine Endocrinology, Diabetes & Metabolism; Visit Provider Internal Medicine Endocrinology, Diabetes & Metabolism
DX: E03.8 Other specified hypothyroidism (principal); E06.3 Autoimmune thyroiditis
CPT/HCPCS: 36415; 84481

== ENCOUNTER → 2025-02-24 06:03 | Outpatient (CLI) | payer MEDICARE, SELFPAY ==
[2025-02-24 08:27] LABS: Thyroid Stimulating Hormone < 0.015 uIU/mL (0.47-4.68)
== END ==
PROVIDERS: Family Provider Physician Assistant; PCP Physician Assistant; Referring Provider Internal Medicine Endocrinology, Diabetes & Metabolism; Visit Provider Internal Medicine Endocrinology, Diabetes & Metabolism
DX: E06.3 Autoimmune thyroiditis (principal)
CPT/HCPCS: 36415; 84443

== ENCOUNTER → 2025-05-05 06:00 | Outpatient (CLI) | payer MEDICARE, SELFPAY ==
[2025-05-05 08:41] LABS: Free T4, Direct Thyroxine 1.69 ng/dL (0.78-2.19)
[2025-05-05 08:56] LABS: Thyroid Stimulating Hormone < 0.015 uIU/mL (0.47-4.68)
== END ==
PROVIDERS: Family Provider Physician Assistant; PCP Physician Assistant; Referring Provider Internal Medicine Endocrinology, Diabetes & Metabolism; Visit Provider Internal Medicine Endocrinology, Diabetes & Metabolism
DX: E06.3 Autoimmune thyroiditis (principal)
CPT/HCPCS: 36415; 84439; 84443

== ENCOUNTER 2025-05-20 08:18 | Day surgery (SDC) | payer MEDICARE, SELFPAY ==
[2025-05-13 12:25] VITALS: BMI 25.0
[2025-05-20] VITALS (14 sets, daily range): BP systolic 109–137; BP diastolic 51–71; PULSE 61–72; RESP 11–18; TEMP 36.3–36.6; O2SAT 97–100; BMI 25.0
--- NOTE | 2025-05-20 | PATH_ITS ---
[facility] Accession Number: [id number] No. of containers..01 Tissue . 01 Material submitted: . endometrium - ENDOMETRIAL CURETTINGS . 01 Diagnosis: ENDOMETRIAL CURETTINGS: Weakly proliferative endometrium; negative for endometrioid intraepithelial neoplasia or malignancy. Portions of endocervix; negative for significant atypia. Scant squames; negative for significant atypia. MRV 05/27/2025 1101 Local . 01 Electronically signed: . Bambi Velasco MD, Pathologist NPI- [id number] . 01 Gross description: . ENDOMETRIAL CURETTINGS: Received in formalin are minute fragments of mucoid and hemorrhagic material measuring 2.0 x 2.0 x 0.1 cm in aggregate. Submitted in toto in 1 cassette. /YUNIEL 05/24/2025 2019 Local . 01 Pathologist provided ICD-10: N95.0 . 01 CPT . 964441 Specimen Comment: A courtesy copy of this report has been sent to [phone] Performed at: [address] [id number] MD Cuate Piña MD Phone: [phone]
[2025-05-20] MEDS: FAMOTIDINE 20 MG/2 ML VIAL IV (08:45)
[2025-05-20] MEDS: LACTATED RINGERS 1,000 ML 21 ML IV (08:45)
[2025-05-20] MEDS: ACETAMINOPHEN IV 1,000 MG/100 ML VIAL 400 MG IV (08:45)
--- NOTE | 2025-05-20 08:56 | P.HPOB_ITS ---
History of Present Illness History of Present Illness Reason for admission: vaginal bleeding Narrative: Nohemy Dougherty is a 69 year old female 4 para 3 with persistent postmenopausal bleeding. She is on hormone replacement therapy. She had an endometrial polyp removed wit iaravi the last year by hysteroscopy. She presents today for a D&C hysteroscopy and for a NovaSure endometrial ablation. She had a negative endometrial biopsy in the office. [facility] Medical History (Updated 05/13/25 @ 12:53 by Gabriella Delacruz RN) ADHD Post-menopausal Hypothyroid Surgical History (Updated 05/13/25 @ 12:43 by Gabriella Delacruz RN) Hx of dilation and curettage (08/2024) Social History (System 09/12/20 @ 08:33 by Lady Janie Reaves) Smoking Status: Never smoker alcohol intake: current Meds Home Medications and Allergies Home Medications ?Medication ?Instructions ?Recorded ?Confirmed ?Type estradiol 0.075 mg/24 hr weekly 1 patch transdermal QW KASIGLUK 06/18/24 05/20/25 Rx transdermal patch Menopause symptoms #4 ea progesterone micronized 200 mg 200 mg PO BEDTIME Hormo ne 12/09/24 05/20/25 Rx capsule replacement therapy #30 caps estradiol 0.05 mg/24 hr weekly 1 patch transdermal QWE EK #8 ea 12/30/24 05/20/25 Rx transdermal patch levothyroxine 125 mcg tablet 125 mcg PO QAM 05/13/25 0 05/13/25 History Allergies Allergy/AdvReac Type Severity Reaction Status Date / Time No Known Drug Allergies Allergy Verified 05/20/25 08:30 Exam Vital Signs (past 8 hours): - 05/20/25 08:35 Temperature 97.3 F L Pulse Rate 70 Respiratory Rate 16 Blood Pressure 123/66 Pulse Oximetry 98 Oxygen Delivery Method Room Air Oxygen Delivery Method Room Air Narrative Exam Narrative: HEENT: No thyromegaly, no anterior cervical or supraclavicular lymphadenopathy. Lungs:Clear to auscultation bilaterally, no wheezes. Cardiovascular: Regular rate and rhythm, no murmurs, rubs, or gallops. Abdomen: No scars. No hepatosplenomegaly. No masses palpable. External genitalia: Normal Vagina: Normal Cervix: Normal Bimanual exam: 8 Week size anteverted uterus. Mobile. Extremities: No edema Assessment & Plan Assessment & Plan narrative: Assessment: 69-year-old 4 para 3 with persistent postmenopausal bleeding on hormone replacement therapy despite multiple dose changes Negative endometrial biopsy in the office Plan: D&C hysteroscopy and NovaSure endometrial ablation The risks, benefits, and alternatives to the procedure were explained to the patient. The risks including bleeding, infection, and uterine perforation. She understands these risks and agrees to proceed. A full par Q was held and consent form was signed. Time-Based Coding :: [TOTAL MINUTES] spent with patient and on the chart (including review of chart, obtaining history, exam, reviewing outside data, placing orders, documenting exam and treatment plan, and counseling patient) on [DATE].
--- NOTE | 2025-05-20 08:58 | PM.PREOP ---
Pre-operative Note Interval Note History & Physical reviewed/Exam performed by Physician: Yes Changes to H&P: No H&P completed within 30 days and has changed as indicated here:: 05/20/25
--- NOTE | 2025-05-20 09:21 | SUR.OPER ---
Lithotomy on padded OR bed, head on pillow, arms secured on padded arm boards at <90 degrees abduction. Legs secured in padded yellow fins stirrups.
--- NOTE | 2025-05-20 09:40 | P.OP_ITS ---
Operative Date/Time/Diagnoses Date of procedure: 05/20/25 Time of procedure: 09:40 Pre-op diagnosis: Persistent postmenopausal bleeding on hormone replacement therapy Negative endometrial biopsy Post-op diagnosis: same Procedure & Clinicians Procedure: Procedures Operation Date: 05/20/25 09:30 Actual Procedure Side Surgeon p Hysteroscopy D&C w/ Novasure Endometrial Ablation Not Applicable Dalila Blackwood MD Indications: 69-year-old 4 para 3 with persistent postmenopausal bleeding on hormone replacement therapy despite multiple changes. Negative endometrial biopsy in the office Surgeon: Dalila Blackwood Anesthesia Type: General (LMA) Operative Notes Findings: 8 week size anteverted uterus Both fallopian tube ostia observed No polyps or fibroids visible Endometrial lining consistent with hormone effect Closure Type: not applicable Specimen(s): endometrial curettings Applied: none Estimated blood loss (mL): 3 Blood products transfused: none Procedure in detail: After informed consent was obtained, the patient was taken to the operating room where she was placed in the dorsal supine position. After adequate LMA general anesthesia was achieved, she was placed in the dorsal lithotomy position, and prepped and draped in the usual sterile fashion. A time-out was performed. A bivalve speculum was placed into the vagina and the anterior lip of the cervix was grasped with a single-tooth tenaculum. The cervical os was sequentially dilated to the # 8 Hegar dilator. The hysteroscope pass easily into the endometrial cavity. Both fallopian tube ostia were observed. There were no polyps or fibroids visible. The hysteroscope was removed. Sharp curettage was performed yielding a moderate amount of endometrial curettings. The uterus was measured from the internal os to the fundus and measured 4.5 cm. This was set on the NovaSure catheter and the generator. The NovaSure catheter passed easily into the endometrial cavity and was opened. The width was 2.5 cm. This was also set on the generator. This indicated a power of 62 Sal. The cervix was capped, the cavity assessment was performed and passed. The cycle was initiated and lasted 1 minute and 2 seconds. The NovaSure catheter was closed. The cervix was uncapped. The catheter was removed from the uterus. The single- tooth tenaculum was removed from the anterior lip of the cervix. The bivalve speculum was removed from the vagina. Sponge, lap, and instrument counts were correct x2. The patient tolerated the procedure well, and was taken to PACU in stable condition. Length of the uterus: 4.5 cm Width of the uterus: 2.5 cm Power: 62 Sal Time: 1 minute and 2 seconds Post-operative Condition: stable Disposition: PACU Plan for aftercare: Home after recovery
[2025-05-20] MEDS: OXYCODONE IR 5 MG TABLET PO ×2 (09:48→10:38)
[2025-05-20] MEDS: HYDROMORPHONE 1 MG INJ IV ×3 (09:51→10:12)
[2025-05-20] MEDS: ONDANSETRON 4 MG/2 ML INJ IV (10:07)
[2025-05-20] MEDS: hydrOXYzine 50 MG/ML INJ 25 MG IM (10:07)
[2025-05-20] MEDS: fentaNYL 100 MCG/2 ML INJ IV (10:20)
[2025-05-20] MEDS: LACTATED RINGERS 1,000 ML 42 ML IV (10:44)
== END 2025-05-20 11:15 | disposition home or self-care (01) ==
LOC: OR 08:20
PROVIDERS: Family Provider Physician Assistant; PCP Physician Assistant; Referring Provider Obstetrics & Gynecology; Visit Provider Obstetrics & Gynecology
PROC: 0U5B8ZZ Destruction of Endometrium, Via Natural or Artificial Opening Endoscopic (ICD-10-PCS; CPT 58563; principal; 2025-05-20 09:30)
DX: N95.0 Postmenopausal bleeding (principal); Z79.890 Hormone replacement therapy
CPT/HCPCS: 58563; J0131; J1100; J1171; J1885; J2405; J2704; J3010; J3410

== ENCOUNTER → 2025-07-06 06:00 | Outpatient (CLI) | payer MEDICARE, SELFPAY ==
[2025-07-06 08:49] LABS: Thyroid Stimulating Hormone < 0.015 uIU/mL (0.47-4.68)
== END ==
PROVIDERS: Family Provider Physician Assistant; PCP Physician Assistant; Referring Provider Internal Medicine Endocrinology, Diabetes & Metabolism; Visit Provider Internal Medicine Endocrinology, Diabetes & Metabolism
DX: E06.3 Autoimmune thyroiditis (principal)
CPT/HCPCS: 36415; 84439; 84443

== ENCOUNTER → 2025-09-08 06:03 | Outpatient (CLI) | payer MEDICARE, SELFPAY ==
[2025-09-08 08:29] LABS: Free T4, Direct Thyroxine 1.35 ng/dL (0.78-2.19)
[2025-09-08 08:44] LABS: Thyroid Stimulating Hormone < 0.015 uIU/mL (0.47-4.68)
== END ==
PROVIDERS: Family Provider Physician Assistant; PCP Physician Assistant; Referring Provider Physician Assistant; Visit Provider Internal Medicine Endocrinology, Diabetes & Metabolism
DX: E06.3 Autoimmune thyroiditis (principal)
CPT/HCPCS: 36415; 84439; 84443

== ENCOUNTER → 2025-10-12 06:03 | Outpatient (CLI) | payer MEDICARE, SELFPAY ==
[2025-10-12 08:13] LABS: Thyroid Stimulating Hormone 0.128 uIU/mL (0.47-4.68)
== END ==
PROVIDERS: Family Provider Physician Assistant; PCP Physician Assistant; Referring Provider Internal Medicine Endocrinology, Diabetes & Metabolism; Visit Provider Internal Medicine Endocrinology, Diabetes & Metabolism
DX: E06.3 Autoimmune thyroiditis (principal)
CPT/HCPCS: 36415; 84443